=== PATIENT | female | born 1960 | race Asian ===

== ENCOUNTER 2023-11-01 09:08 | Outpatient (REF) | payer MEDICAID, SELFPAY | END 2023-11-01 09:09 | disposition home or self-care (01) | LOC: HO.HHCLNP 09:08 | PROVIDERS: Visit Provider Emergency Medicine | DX: R10.10 Upper abdominal pain, unspecified (principal) | CPT/HCPCS: 87338 ==

== ENCOUNTER 2023-11-01 15:48 | Emergency (ER) | payer MEDICAID, SELFPAY ==
--- NOTE | ~2023-11-01 | XR_ITS ---
EXAMINATION: XR chest 1V CLINICAL INFORMATION: Chest pain COMPARISON: None TECHNIQUE: Single portable frontal view. Tubes and lines: None Lungs and pleura: Both lungs are clear. Heart and mediastinum: The mediastinum is within normal limits.. Bones/soft tissue: Skeletal structures included are normal for patient's age. XR/XR chest 1V IMPRESSION: No radiographic evidence of acute cardiopulmonary disease.
--- NOTE | 2023-11-01 15:49 | ECG_ITS ---
Test Reason : CHEST PAIN Blood Pressure : / mmHG Vent. Rate : 094 BPM Atrial Rate : 094 BPM P-R Int : 154 ms QRS Dur : 078 ms QT Int : 372 ms P-R-T Axes : 063 045 021 degrees QTc Int : 465 ms Normal sinus rhythm ST & T wave abnormality, consider inferior ischemia Abnormal ECG No previous ECGs available Referred By: Lorrie Sanchez Electronically Signed By:CHAMP SMITH MD
--- NOTE | 2023-11-01 15:53 | ED_ITS ---
HPI - General Adult General Chief complaint: Chest Pain Stated complaint: chest pain, sent by Vickers Time Seen by Provider: 11/01/23 18:22 History of Present Illness HPI narrative: 63 y/o F patient; without significant PMH; presents on referral from PCP for several months of chest pain. The patient moved to [facility] from [facility] one year ago. In that time she has not seen a doctor as she did not have insurance. She recently received insurance and today was her first visit to her new PCP. While at the PCP office patient noted several months of left-sided headache, left-sided neck pain, and left-sided chest pain. These symptoms are worse at night and when trying to sleep. She also endorsed right upper quadrant pain. As she endorsed active chest pain she was sent to the emergency department for further evaluation. Patient's son-in-law provides translation. He denies: nausea/vomiting, diarrhea, difficulty breathing, syncope. Related Data Allergies Allergy/AdvReac Type Severity Reaction Status Date / Time No Known Allergies Allergy Verified 11/01/23 16:06 Review of Systems 2 Review of Systems: Yes all other systems are reviewed and are negative Neurologic: Denies Abnormal speech present and Denies Sensory deficit (Neuro) [facility] Past Medical History Attestation statement: The following information was validated with the patient. Source: unable to obtain Social History Social History Smoked in Last 30 Days: No Use of substances other than those prescribed or required for medical reasons: No Do you have a plan to hurt others: No Plan Physical Exam ED Vital Signs: Vital Signs - 24 hr 11/01/23 16:04 11/01/23 18:44 Temperature 97.6 F 98.1 F Pulse Rate 91 64 Respiratory Rate 18 16 Blood Pressure 144/79 H 143/77 H Pulse Oximetry 99 99 Oxygen Delivery Method Room Air Room Air BMI result Body Mass Index 22.8 Patient is afebrile, mildly hypertensive. Const General: cooperative Orientation/consciousness: patient oriented x3 HENMT Head: Yes normal to inspection and Yes atraumatic Eyes General: appearance normal, both eyes and all related structures Pupils: Equal, round and reactive pupils present EOM: EOMs intact bilaterally Neck Neck: Yes normal visual inspection, Yes full ROM and No tender Chest Chest palpation & inspection: normal inspection of the chest and normal palpation of entire chest wall Resp Effort & Inspection: normal respiratory effort, able to speak in complete sentences, no cough and no respiratory distress Auscultation: clear to auscultation bilaterally Cardio Rate: regular rate Rhythm: regular rhythm Peripheral pulses: Peripheral pulses 2+ throughout GI Inspection: Yes normal to inspection, No Abdominal wall edema and No distended Palpation (GI): Soft to palpation, not firm, nontender, no guarding and not rigid Auscultation: normal bowel sounds Neuro General: patient oriented x3 and gait normal Cranial nerves: Yes CN's II-XII intact bilaterally and Yes Equal, round and reactive pupils present Cognition (Neuro): normal cognition Speech: No Abnormal speech present Motor exam (neuro): 5/5 motor strength present throughout Sensory Exam: No Sensory deficit (Neuro) Course Course Course Narrative: This is an RME done by SHANE Sanchez: Additional HPI, ROS, PE not included below will be deferred to primary provider. 63 year old female hx of htn ( hasnt been on meds for a year) presents w/ cp, headache, sob X a long time coming from doctors office who recommended CT scan of head, chest, abd/pelvis unclear why. Patient [facility] and since then has not taken home meds. Reevaluation(s) Reevaluation #1: Patient is afebrile and mildly hypertensive. EKG with NSR 72BPM without ischemic changes. Labs reviewed. No leukocytosis. Normal Hgb. Appropriate kidney function. Appropriate LFTs and alk phos. Appropriate lipase. Negative troponin. CXR unremarkable. Unclear etiology of patient's chronic pain complaints. Patient will need to continue to establish care with PCP for further out-patient diagnostic studies. At this time patient is hemodynamically stable with reassuring vitals and appropriate for further out-patient work up. Discussed with patient and son-in-law at bedside. They expressed understanding. Plan: Discharge to home to follow up with PCP Condition: Stable Medical Decision Making Lab Data 11/01/23 15:55 11/01/23 15:55 Labs: Lab Results 11/01/23 Range/Units 15:55 WBC 6.6 (4.8-10.8) X10*3/uL RBC 4.57 (4.20-5.50) X10*6/uL Hgb 12.5 (12.0-16.0) g/dl Hct 39.2 (37.0-47.0) % MCV 85.8 (80.0-98.0) fL MCH 27.4 (27.0-33.0) pg MCHC 31.9 (31.0-35.0) g/dl RDW 12.3 (11.0-16.0) % Plt Count 289 (160-400) X10*3/uL MPV 8.8 L (9.4-12.3) fL Immature Gran % (Auto) 0.2 (0.0-0.4) % Neut % (Auto) 56.0 (45-73) % Lymph % (Auto) 28.5 (20-40) % Gilchrist % (Auto) 11.6 H (2-11) % Eos % (Auto) 2.9 (0-4) % Baso % (Auto) 0.8 (0-2) % Lymph # (Auto) 1.9 (1.2-4.9) X10*3/uL Gilchrist # (Auto) 0.8 (0.1-1.2) X10*3/uL Eos # (Auto) 0.2 (0.0-0.4) X10*3/uL Baso # (Auto) 0.1 (0.0-0.2) X10*3/uL Abs Immat Gran (auto) 0.01 (0.00-0.03) X10*3/uL Absolute Neuts (auto) 3.7 (2.0-8.3) x10*3/uL Absolute Nucleated RBC 0.000 (0.0-0.012) X10*3/uL Nucleated RBC % (auto) 0.0 (0.0-0.2) /100WBC Sodium 141 (135-145) mmol/L Potassium 3.7 (3.3-5.1) mmol/L Chloride 105 (96-108) mmol/L Carbon Dioxide 25 (22-29) mmol/L Anion Gap 15 (12-20) BUN 10 (9-16) mg/dL Creatinine 0.74 (0.5-1.4) mg/dL Estim Creat Clear Calc 53.0 Estimated GFR > 60 Random Glucose 113 (60-115) mg/dL Calcium 9.7 (8.4-10.2) mg/dL Magnesium 2.3 (1.6-2.6) mg/dL Total Bilirubin 0.2 (0.0-1.0) mg/dL AST 27 (5-31) U/L ALT 28 (0-31) U/L Alkaline Phosphatase 81 (39-117) U/L Troponin I High Sens < 2.7 (<3.5-17.0) ng/L Total Protein 7.7 (6.5-8.0) g/dL Albumin 4.4 (3.5-5.0) g/dL Lipase 37 (8-78) U/L Discharge Plan Discharge Clinical Impression: Chest pain Patient Disposition: Home, Self-Care Instructions: Chest Pain (DC) Additional Instructions: As we discussed, you were seen for chest pain as well as left-sided neck pain and headache. Your CXR was reassuring. Your labs were reassuring with a normal CBC, CMP, lipase, and troponin. Your EKG was reassuring. Recommend you follow up with your PCP on Saturday11/03/2023 for further diagnostic work up and to began a hypertension medication. Return to the emergency department for: Passing out Worsening chest pain Difficulty breathing
[2023-11-01 16:02] LABS: MANUAL DIFF FLAG NO
[2023-11-01 16:04] VITALS: BP 144/79; PULSE 91; RESP 18; TEMP 36.4; O2SAT 99; BMI 22.8
[2023-11-01 16:04] LABS: Basophils Absolute Auto 0.1 X10*3/uL (0.0-0.2); Basophils Percent Auto 0.8 % (0-2); Eosinophils Absolute Auto 0.2 X10*3/uL (0.0-0.4); Eosinophils Percent Auto 2.9 % (0-4); Hematocrit 39.2 % (37.0-47.0); Hemoglobin 12.5 g/dl (12.0-16.0); Imm Gran Abs Auto 0.01 X10*3/uL (0.00-0.03); Imm Gran Pct Auto 0.2 % (0.0-0.4); Lymphocytes Absolute Auto 1.9 X10*3/uL (1.2-4.9); Lymphocytes Percent Auto 28.5 % (20-40); Mean Corpuscular HGB Conc 31.9 g/dl (31.0-35.0); Mean Corpuscular Hemoglobin 27.4 pg (27.0-33.0); Mean Corpuscular Volume 85.8 fL (80.0-98.0); Mean Platelet Volume 8.8 fL (9.4-12.3); Monocytes Absolute Auto 0.8 X10*3/uL (0.1-1.2); Monocytes Percent Auto 11.6 % (2-11); Neutrophils Absolute Auto 3.7 x10*3/uL (2.0-8.3); Platelet Count 289 X10*3/uL (160-400); Red Blood Count 4.57 X10*6/uL (4.20-5.50); Red Cell Distribution Width 12.3 % (11.0-16.0); White Blood Count 6.6 X10*3/uL (4.8-10.8)
[2023-11-01 16:19] LABS: Alanine Aminotransferase 28 U/L (0-31); Albumin Level 4.4 g/dL (3.5-5.0); Alkaline Phosphatase 81 U/L (39-117); Anion Gap 15 (12-20); Aspartate Amino Transferase 27 U/L (5-31); Bilirubin Total 0.2 mg/dL (0.0-1.0); Blood Urea Nitrogen 10 mg/dL (9-16); Calcium 9.7 mg/dL (8.4-10.2); Carbon Dioxide 25 mmol/L (22-29); Chloride 105 mmol/L (96-108); Estimated Glomerular Filt Rate > 60; Glucose Random 113 mg/dL (60-115); Magnesium 2.3 mg/dL (1.6-2.6); Potassium 3.7 mmol/L (3.3-5.1); Sodium 141 mmol/L (135-145); Total Protein 7.7 g/dL (6.5-8.0)
[2023-11-01 16:31] LABS: Troponin-I High Sensitivity < 2.7 ng/L (<3.5-17.0)
--- NOTE | 2023-11-01 18:25 | ECG_ITS ---
Test Reason : CHEST PAIN Blood Pressure : / mmHG Vent. Rate : 072 BPM Atrial Rate : 072 BPM P-R Int : 162 ms QRS Dur : 086 ms QT Int : 438 ms P-R-T Axes : 066 054 051 degrees QTc Int : 479 ms Normal sinus rhythm Normal ECG When compared with ECG of 01-NOV-2023 15:50, T wave inversion no longer evident in Inferior leads Referred By: Micehlle Nelson Electronically Signed By:CHAMP SMITH MD
[2023-11-01 18:44] VITALS: BP 143/77; PULSE 64; RESP 16; TEMP 36.7; O2SAT 99
[2023-11-01 19:00] LABS: Lipase 37 U/L (8-78)
[2023-11-01 19:01] VITALS: PULSE 74
--- NOTE | 2023-11-01 19:07 | PC.NURSE ---
Assumed care of pt. Assessed as charted. Provider at bedside.
[2023-11-01] MEDS: Acetaminophen 325 MG TABLET 975 MG PO (19:57)
[2023-11-01 20:03] VITALS: BP 156/92; PULSE 77; RESP 18; TEMP 36.4; O2SAT 99
== END 2023-11-01 20:04 | disposition home or self-care (01) ==
PROVIDERS: Physician Assistant; Emergency Provider Emergency Medicine
DX: R07.9 Chest pain, unspecified (principal); R51.9 Headache, unspecified; M54.2 Cervicalgia
CPT/HCPCS: 36415; 71045; 80053; 83690; 83735; 84484; 85025; 93005; 99283; 99285

== ENCOUNTER → 2023-11-01 15:49 | Outpatient (BNV) | payer MEDICAID, SELFPAY | PROVIDERS: Emergency Provider Emergency Medicine; Visit Provider Internal Medicine Cardiovascular Disease | DX: R07.9 Chest pain, unspecified (principal) | CPT/HCPCS: 93010 ==

== ENCOUNTER 2023-12-27 15:30 | Outpatient (AMB) | payer MEDICAID, SELFPAY ==
[2023-12-27 15:32] VITALS: BP 157/72; PULSE 67; BMI 22.1
--- NOTE | 2023-12-27 15:32 | A.OFFVIS_ITS ---
Vital Signs 12/27/23 15:32 Height 4 ft 10 in Weight 105 lb 13.15 oz BMI 22.1 BP 157/72 H Blood Pressure Location Lt brachial Position Sitting Pulse 67 Intake Visit Reasons: Upper ABD Pain Intake Note: Louann presents as a new patient for evaluation and management of abdominal pain. CC: Patient in office with her son in law who is interpreting for her. She c/o right upper abdominal pain, epigastric pain, and right flank on and off for about 5 years ago. She reports feeling the pain after eating. Pain scale 8/10, pain better after she takes, gas pill. Patient came from [facility] about a year ago and she just got [facility] and started recently seeing doctors. She also reports upper back pain, high BP, and tachycardia. Filter Tank Tender Required: No Accompanied by: son in law Allergies No Known Allergies Allergy (Verified 11/01/23 16:06) HPI HPI Upper ABD Pain: Details: 63-year-old female with no significant medical history and multiple health complaints in the past 10 years is here today for initial consultation. Patient is here with her son-in-law who is translating for us per patient's request. Patient does not want to have iPad translators as her dialect is different and she will not understand. Patient reports that she got to [facility] about a year ago from [facility]. Has not been seen by doctors regularly in her country. Patient states that medical care is only for patients who are sick. Lately in the past few weeks patient has been complaining of abdominal pain postprandial abdominal bloating, constipation, palpitation and has been seen in urgent care, however due to nature of her complaint she was sent to ER. Patient was complaining back in October of chest pain and was sent by Dr. Vickers to ER where she was evaluated with negative workup. Patient does not have a PCP yet as just recently got her health insurance. Patient never had colonoscopy in the past or upper endoscopy. Patient denies melena, hematochezia, unintentional weight loss or ribbon like stools. Patient reports to have frequent abdominal bloating, occasional postprandial diarrhea, however feeling constipated for the most part. Patient denies any nausea or vomiting. Patient reports that she is unable to sleep. [facility] Surgical History (Updated 12/27/23 @ 15:49 by TYSON Coats) No pertinent past surgical history Social History (Updated 12/27/23 @ 15:49 by TYSON Coats) Alcohol intake: never Patient Tobacco Use Status: Never used Tobacco Review of Systems Const Denies weight gain and Denies weight loss ENT Reports no additional complaints, Denies dysphagia and Denies odynophagia Card Reports rapid heart rate Resp Reports no additional complaints GI Reports abdominal pain (Epigastric), Denies belching, Denies melena, Reports bloating, Denies change in bowel habits, Reports constipation, Denies dysphagia, Denies excessive flatus, Denies dyspepsia, Reports heartburn, Denies diarrhea, Reports loose stools, Denies nausea, Denies odynophagia and Denies vomiting Reports no additional complaints Musc Reports no additional complaints Neuro Reports no additional complaints Psych Reports no additional complaints Endo Reports no additional complaints Physical Exam Vital Signs: Last Vital Signs Pulse 67 12/27/23 15:32 BP 157/72 H 12/27/23 15:32 BMI result Body Mass Index 22.1 Const General: healthy appearing, no acute distress and well developed Nutritional Appearance: well nourished Orientation/consciousness: patient oriented x3 Resp Effort & Inspection: normal respiratory effort, able to speak in complete sentences, no tracheal deviation and symmetric chest movement Auscultation: clear to auscultation bilaterally Cardio Rate: regular rate GI Inspection: Yes normal to inspection and No distended Palpation (GI): Soft to palpation, not firm, nontender and No hepatosplenomegaly present Auscultation: normal bowel sounds General: Yes no CVA tenderness Back/Spine/Pelvis Back: no CVA tenderness Skin General skin exam: elasticity normal, turgor normal and dry skin Neuro General: patient oriented x3 Psych Appearance: grossly normal Mental Status: mental status grossly normal Assessment & Plan Assessment & Plan (1) Postprandial abdominal bloating: Code(s): R14.0 - Abdominal distension (gaseous) (2) Postprandial epigastric pain: Code(s): R10.13 - Epigastric pain (3) Constipation: Code(s): K59.00 - Constipation, unspecified Qualifiers: Constipation type: slow transit constipation Qualified Code(s): K59.01 - Slow transit constipation (4) Palpitations: Code(s): R00.2 - Palpitations Plan Recent lab work from ER reviewed and no acute processes. Patient admits to being constipated will send her script for senna. Reports palpitations will send her to see Cardiology. Patient does not have a PCP she was encouraged to try to find one at [facility] or [facility]. Per patient request I gave her 1 month supply of melatonin to try to help her with sleep. Ultrasound was ordered by Dr. Vickers at urgent care at [facility]. Patient has appointment already and I will see her after reviewing the ultrasound in 4 weeks. Both patient and son-in-law are agreeable to plan of care and verbalizes understanding of instructions. They were given the opportunity to ask questions and all questions answered. Thank you for allowing me to participate in her care. Orders: Referrals Cardiology Referral I10 - Essential (primary) hypertension, R00.2 - Palpitations, R07.9 - Chest pain, unspecified Medications: New sennosides (Natural Senna Laxative) 17.2 mg (2 x 8.6 mg) PO BEDTIME 60 tabs 3RF constipation K59.00 - Constipation, unspecified melatonin 3 mg PO BEDTIME PRN 30 caps 0RF sleep Coding Level of Care Code New Pt Level 4 (49904) Diagnoses Postprandial abdominal bloating R14.0 Postprandial epigastric pain R10.13 Slow transit constipation K59.01 Constipation type: slow transit constipation Palpitations R00.2 Time Spent (min) 45 Comment 30 minutes spent with patient and additional 15 minutes spent reviewing her records
== END 2023-12-27 16:22 | disposition home or self-care (01) ==
PROVIDERS: Visit Provider Nurse Practitioner Family
DX: R14.0 Abdominal distension (gaseous) (principal); R10.13 Epigastric pain; K59.01 Slow transit constipation; R00.2 Palpitations
CPT/HCPCS: 99204

== ENCOUNTER → 2023-12-27 15:30 | Outpatient (BNVA) | payer MEDICAID, SELFPAY | PROVIDERS: Visit Provider Nurse Practitioner Family | DX: K59.01 Slow transit constipation (principal); R14.0 Abdominal distension (gaseous); R10.13 Epigastric pain; R00.2 Palpitations | CPT/HCPCS: 99212 ==

== ENCOUNTER 2024-01-03 07:27 | Outpatient (REF) | payer MEDICAID, SELFPAY ==
--- NOTE | ~2024-01-03 | US_ITS ---
EXAMINATION: US ABDOMEN COMPLETE CLINICAL INFORMATION: Epigastric and right upper quadrant pain. COMPARISON: None available. TECHNIQUE: Real-time imaging of the abdominal viscera. FINDINGS: PANCREAS: Normal. ABDOMINAL AORTA: The proximal, mid, and distal segments are normal in caliber. INFERIOR VENA CAVA: Visualized portions are normal. LIVER: Normal. The liver is normal in size. The liver contour is normal. Parenchymal echogenicity is normal. No focal hepatic lesion. There is no intrahepatic biliary duct dilatation seen. GALLBLADDER: Normal. The gallbladder is physiologically distended without evidence of stones, sludge, polyps, wall thickening or pericholecystic fluid. COMMON BILE DUCT: Normal in caliber measuring 0.3 cm in diameter. RIGHT KIDNEY: Normal. No hydronephrosis. No renal calculi or focal parenchymal lesions. The kidney measures 10.7 cm in maximum dimension. LEFT KIDNEY: Normal. No hydronephrosis. No renal calculi or focal parenchymal lesions. The kidney measures 11.5 cm in maximum dimension. SPLEEN: Normal. The spleen measures 7.0 cm in maximum dimension. FREE FLUID: None. US/US abdomen complete IMPRESSION: Unremarkable abdominal ultrasound.
== END 2024-01-03 07:28 | disposition home or self-care (01) ==
LOC: HO.US 07:27
PROVIDERS: Visit Provider Emergency Medicine
DX: R10.10 Upper abdominal pain, unspecified (principal)
CPT/HCPCS: 76700

== ENCOUNTER 2024-01-24 13:33 | Outpatient (AMB) | payer MEDICAID, SELFPAY ==
--- NOTE | 2024-01-24 13:39 | A.OFFVIS_ITS ---
Vital Signs 01/24/24 13:56 Height 4 ft 10 in Weight 105 lb 13.15 oz BMI 22.1 BP 132/62 Blood Pressure Location Lt brachial Position Sitting Pulse 68 Pulse Source Pulse Oximeter Pulse Oximetry (%) 98 Oxygen Delivery Method Room Air Intake Visit Reasons: 4 week PER LUIS ANTONIO Intake Note: Louann presents in office today for a scheduled 4 week FUV. CC; Pt reports that their sx have improved since their last visit. Pt is however; still reporting heart palpitations. Pt also reports having L shoulder pain. Pt states that these are chronic sx over the last few years. Pt has been having difficulties with sleeping as well due to the pain. Pt has been taking acetaminophen for the pain which helps. However, they are concerned that the appt for the cardio consult isn't until April of this year. Pt states that she is not taking the senna as she had been having an adverse reaction with regard to her cardiovascular sx. Pt is taking a medication from [facility] which she cannot remember the name of. However, she finds that this medication is working rather well. Pt spouse is concerned regarding the pt's nutrition or lack thereof. Informatics Application Analyst Required: Yes Informatics Application Analyst Services: Informatics Application Analyst Offered & Declined Information Interpreted: non-clinical & clinical Accompanied by: Spouse Allergies No Known Allergies Allergy (Verified 02/07/24 13:39) HPI HPI 4 week PER LUIS ANTONIO: Details: LAST VISIT: Postprandial abdominal bloating Postprandial epigastric pain Constipation Palpitations Plan Recent lab work from ER reviewed and no acute processes. Patient admits to being constipated will send her script for senna. Reports palpitations will send her to see Cardiology. Patient does not have a PCP she was encouraged to try to find one at [facility] or [facility]. Per patient request I gave her 1 month supply of melatonin to try to help her with sleep. Ultrasound was ordered by Dr. Vickers at urgent care at [facility]. Patient has appointment already and I will see her after reviewing the ultrasound in 4 weeks. Both patient and son-in-law are agreeable to plan of care and verbalizes understanding of instructions. They were given the opportunity to ask questions and all questions answered. ? Thank you for allowing me to participate in her care. Orders Referrals Cardiology Referral I10, R00.2, R07.9 Medications New sennosides (Natural Senna Laxative) 17.2 mg (2 x 8.6 mg) PO BEDTIME 60 tabs 3RF constipation K59.00 melatonin 3 mg PO BEDTIME PRN 30 caps 0RF sleep TODAY'S VISIT Patient is here today for follow-up. Patient reports that she has an appointment with Cardiology for consult in April. Patient states that her symptoms of acid reflux have suppressed. No longer is using senna. Patient tried something from [place] that is helping her move her bowels better. Patient denies any abdominal pain or discomfort. Denies melena, hematochezia, unintentional weight loss or ribbon like stools. Patient denies any dyspepsia, dysphagia or odynophagia. Patient reports that she has good appetite denies GI concerning symptoms. Reports shoulder no. Shoulder pain and joint pain in the past couple years. Takes [id number] Tylenol as needed. Encouraged to get this evaluated by the walk-in clinic as patient does not have a PCP [facility] Surgical History No pertinent past surgical history Social History Alcohol intake: never Patient Tobacco Use Status: Never used Tobacco Review of Systems Const Denies weight gain and Denies weight loss ENT Reports no additional complaints, Denies dysphagia and Denies odynophagia Card Reports rapid heart rate Resp Reports no additional complaints GI Reports abdominal pain (Epigastric), Denies belching, Denies melena, Reports bloating, Denies change in bowel habits, Reports constipation, Denies dysphagia, Denies excessive flatus, Denies dyspepsia, Reports heartburn, Denies diarrhea, Reports loose stools, Denies nausea, Denies odynophagia and Denies vomiting Reports no additional complaints Musc Reports no additional complaints Neuro Reports no additional complaints Psych Reports no additional complaints Endo Reports no additional complaints Physical Exam Vital Signs: Last Vital Signs Pulse 68 01/24/24 13:56 BP 132/62 01/24/24 13:56 Pulse Ox 98 01/24/24 13:56 Oxygen Delivery Method Room Air 01/24/24 13:56 BMI result Body Mass Index 22.1 Const General: healthy appearing, no acute distress and well developed Nutritional Appearance: well nourished Orientation/consciousness: patient oriented x3 Resp Effort & Inspection: normal respiratory effort, able to speak in complete sentences, no tracheal deviation and symmetric chest movement Auscultation: clear to auscultation bilaterally Cardio Rate: regular rate GI Inspection: Yes normal to inspection and No distended Palpation (GI): Soft to palpation, not firm, nontender and No hepatosplenomegaly present Auscultation: normal bowel sounds General: Yes no CVA tenderness Back/Spine/Pelvis Back: no CVA tenderness Skin General skin exam: elasticity normal, turgor normal and dry skin Neuro General: patient oriented x3 Psych Appearance: grossly normal Mental Status: mental status grossly normal Results Reviewed Results Reviewed: ABDOMINAL ULTRASOUND FINDINGS: PANCREAS: Normal. ABDOMINAL AORTA: The proximal, mid, and distal segments are normal in caliber. INFERIOR VENA CAVA: Visualized portions are normal. LIVER: Normal. The liver is normal in size. The liver contour is normal. Parenchymal echogenicity is normal. No focal hepatic lesion. There is no intrahepatic biliary duct dilatation seen. GALLBLADDER: Normal. The gallbladder is physiologically distended without evidence of stones, sludge, polyps, wall thickening or pericholecystic fluid. COMMON BILE DUCT: Normal in caliber measuring 0.3 cm in diameter. RIGHT KIDNEY: Normal. No hydronephrosis. No renal calculi or focal parenchymal lesions. The kidney measures 10.7 cm in maximum dimension. LEFT KIDNEY: Normal. No hydronephrosis. No renal calculi or focal parenchymal lesions. The kidney measures 11.5 cm in maximum dimension. SPLEEN: Normal. The spleen measures 7.0 cm in maximum dimension. FREE FLUID: None. US/US abdomen complete IMPRESSION: Unremarkable abdominal ultrasound. Assessment & Plan Assessment & Plan (1) Postprandial abdominal bloating: Code(s): R14.0 - Abdominal distension (gaseous) (2) Postprandial epigastric pain: Code(s): R10.13 - Epigastric pain (3) Constipation: Code(s): K59.00 - Constipation, unspecified Qualifiers: Constipation type: slow transit constipation Qualified Code(s): K59.01 - Slow transit constipation (4) Palpitations: Code(s): R00.2 - Palpitations Plan Avoid dietary triggers and late night snacking. Increase fluid intake and activity to promote better bowel motility. Increase fiber intake. Patient will return in 2 months will discuss going for colonoscopy and if continues with epigastric pain upper endoscopy. She is agreeable to this plan and verbalizes understanding of instructions. She was given the opportunity to ask questions and all questions answered. Thank you for allowing me to participate in her care Orders: Referrals Dermatology Referral D23.30 - Other benign neoplasm of skin of unspecified part of face Coding Level of Care Code Est Pt Level 3 (26422) Diagnoses Postprandial abdominal bloating R14.0 Postprandial epigastric pain R10.13 Slow transit constipation K59.01 Constipation type: slow transit constipation Palpitations R00.2 Time Spent (min) 25 Comment 15 minutes spent with patient and additional 10 minutes spent reviewing her records
[2024-01-24 13:56] VITALS: BP 132/62; PULSE 68; O2SAT 98; BMI 22.1
== END 2024-01-24 14:39 | disposition home or self-care (01) ==
PROVIDERS: Visit Provider Nurse Practitioner Family
DX: R14.0 Abdominal distension (gaseous) (principal); R10.13 Epigastric pain; K59.01 Slow transit constipation; R00.2 Palpitations
CPT/HCPCS: 99213

== ENCOUNTER → 2024-01-24 13:33 | Outpatient (BNVA) | payer MEDICAID, SELFPAY | PROVIDERS: Visit Provider Nurse Practitioner Family | DX: K21.9 Gastro-esophageal reflux disease without esophagitis (principal) | CPT/HCPCS: 99212 ==

== ENCOUNTER 2024-02-07 13:32 | Outpatient (AMB) | payer MEDICAID, SELFPAY ==
--- NOTE | 2024-02-07 13:36 | MHC.OFFWIV ---
Intake Vital Signs 02/07/24 13:37 Weight 107 lb BP 118/70 Blood Pressure Location Lt brachial Position Sitting Pulse 63 Pulse Source Pulse Oximeter Pulse Oximetry (%) 98 Oxygen Delivery Method Room Air Intake Visit Reasons: EP- LT cheek skin rash Intake Note: Patient here for rash on left side of face and states her head hurts and radiates down the to left shoulders and having difficulty sleeping due to pain. Patient Tobacco Use Status: Never used Tobacco Allergies No Known Allergies Allergy (Verified 02/07/24 13:39) Do you need a note to return to daycare/school/sports/work: No HPI HPI Comments History of Present Illness Details Patient is a 64-year-old female here with her son who is interpreting for her. He states that she went to see her patron attendant and was given a referral for Dermatology because of a lesion on the side of her face. He states that they are unable to be seen by that dermatology office for 3 months and this lesion has been here for a while and they really want to see someone is soon as possible. Her 2nd issue is that she has pain that radiates down the left side of her neck into her shoulders and her scapula. She feels like the pain sometimes spasms on its own. She said it is difficult for her to sleep at night because of the pain. She has tried Tylenol at a proper dose, she has tried ibuprofen at a proper dose. She denies any trauma to the area. He tells me that she came from [facility] 1 year ago and does not have a primary care doctor. [facility] Surgical History No pertinent past surgical history Social History Alcohol intake: never Patient Tobacco Use Status: Never used Tobacco Review of Systems Const All systems reviewed & are unremarkable except as noted in HPI and below Physical Exam Vital Signs: Last Vital Signs Pulse 63 02/07/24 13:37 BP 118/70 02/07/24 13:37 Pulse Ox 98 02/07/24 13:37 Oxygen Delivery Method Room Air 02/07/24 13:37 Const General: cooperative, healthy appearing, comfortable, no acute distress and well developed Orientation/consciousness: patient oriented x3 Limitations: no limitations HEENT Head: Yes normal to inspection Ears: hearing grossly normal bilaterally General nose exam: Normal external nose present Face and sinus: Yes normal facial exam Eyes General: appearance normal, both eyes and all related structures Neck Neck: Yes normal visual inspection and Yes full ROM Resp Effort & Inspection: normal respiratory effort and able to speak in complete sentences Back/Spine/Pelvis Cervical Spine: cervical ROM normal, cervical muscular tenderness (left side) and No Cervical spine tenderness Thoracic/Lumbar Spine: paraspinal muscle tenderness on the left, thoraco-lumbar spasm (upper thoracic area) on the left and No thoracic spinal tenderness Skin General skin exam: no rashes or lesions noted Neuro General: patient oriented x3 Extrem General: Yes normal to inspection Assessment & Plan Assessment & Plan (1) Strain of neck muscle: Code(s): S16.1XXA - Strain of muscle, fascia and tendon at neck level, initial encounter Qualifiers: Encounter type: initial encounter Qualified Code(s): S16.1XXA - Strain of muscle, fascia and tendon at neck level, initial encounter Plan: Recommended meloxicam nightly as needed (2) Muscle spasm of left shoulder: Code(s): M62.838 - Other muscle spasm Plan: Recommended cyclobenzaprine nightly as needed. Reviewed this medication with the patient and recommended that they not get up in the middle of the night and walk around because they will be very groggy and I do not want them to fall. Reviewed this with her son. Plan Also gave the patient information for [facility] so she can get an appointment for the lesion on her face sooner than later. I did not do a thorough examination on the lesion, I am not sending a referral. I just gave them the name and number of [facility] Medications: New cyclobenzaprine 5 mg PO Q8H PRN 7 tabs 0RF muscle spasm meloxicam 15 mg PO .QHS PRN 10 tabs 0RF muscle pain Coding Level of Care Code New Pt Level 3 (09667) Diagnoses Strain of neck muscle, initial encounter S16.1XXA Encounter type: initial encounter Muscle spasm of left shoulder M62.838
[2024-02-07 13:37] VITALS: BP 118/70; PULSE 63; O2SAT 98
== END 2024-02-07 14:01 | disposition home or self-care (01) ==
PROVIDERS: Visit Provider Physician Assistant
DX: S16.1XXA Strain of muscle, fascia and tendon at neck level, initial encounter (principal); M62.838 Other muscle spasm
CPT/HCPCS: 99203

== ENCOUNTER 2024-02-21 08:11 | Outpatient (AMB) | payer MEDICAID, SELFPAY ==
--- NOTE | 2024-02-21 08:19 | MHC.OFFWIV ---
Intake Vital Signs 02/21/24 08:20 Height 4 ft 10 in Weight 105 lb BMI 21.9 BP 114/72 Blood Pressure Location Lt brachial Position Sitting Pulse 69 Pulse Source Pulse Oximeter Pulse Oximetry (%) 96 Oxygen Delivery Method Room Air Intake Visit Reasons: EP Back pain, UTI? Intake Note: Patient here for back pain which she was put on medication for but it was only for 5 days and now she is having pain again. She also has been having frequent urination. Patient Tobacco Use Status: Never used Tobacco Allergies No Known Allergies Allergy (Verified 02/07/24 13:39) HPI EP Back pain, UTI? HPI Details 64 year old female patient presents to the walk-in clinic today with report of ongoing left upper back muscular pain, in addition to bilateral lumbar pain. The left upper neck/back pain is most troublesome for her, she reports that pain radiates down the left side of her neck into her shoulders and her scapular region. She occasionally has spasms in this area, and this is making sleep difficult. She had previously tried Tylenol and ibuprofen with minimal benefit. She was seen here on 02/06, and started on short course of meloxicam and cyclobenzaprine. This was reportedly very helpful for her, but once she stopped the medication, her pain and spasms recurred. She denies any inciting events/trauma prior to this pain. She has recently emigrated from [facility] and does not have a primary care provider at this time, although she does have a new patient appointment scheduled, it is not until the spring. She reports additionally some urinary frequency. Denies any fever, chills, dysuria, urgency, odor, or discoloration to urine. [facility] Surgical History No pertinent past surgical history Social History Alcohol intake: never Patient Tobacco Use Status: Never used Tobacco Review of Systems Const All systems reviewed & are unremarkable except as noted in HPI and below Physical Exam Vital Signs: Last Vital Signs Pulse 69 02/21/24 08:20 BP 114/72 02/21/24 08:20 Pulse Ox 96 02/21/24 08:20 Oxygen Delivery Method Room Air 02/21/24 08:20 BMI result Body Mass Index 21.9 Const General: cooperative, healthy appearing, comfortable and no acute distress Neck Neck: Yes no lymphadenopathy Resp Effort & Inspection: normal respiratory effort Auscultation: clear to auscultation bilaterally Cardio Rate: regular rate Rhythm: regular rhythm General: Yes bladder normal to palpation and Yes no CVA tenderness Bimanual exam- vagina & uterus: bladder normal to palpation Back/Spine/Pelvis Other: Cervical/thoracic/lumbar range of motion within normal limits. No vertebral tenderness. Straight leg test negative bilaterally. Tenderness along left trapezius and rhomboid, additionally in lower lumbar paraspinal musculature. No SI joint pain on exam. Back: no CVA tenderness Skin General skin exam: no rashes or lesions noted Extrem General: Yes capillary refill normal and Yes no clubbing, cyanosis or edema Psych Appearance: grossly normal Mental Status: mental status grossly normal Speech and movement: Normal speech and movement present Results AMB Urinalysis, Automated UA Leukoctes 0 [place]/uL Last Edit by Bharat Mckeon CCM on 02/21/24 08:33 UA Nitrite Negative Last Edit by Bharat Mckeon [facility] on 02/21/24 08:33 UA Urobilinogen 0.2 mg/dL Last Edit by Bharat Mckeon [facility] on 02/21/24 08:33 UA Protein 0 mg/dL Last Edit by Bharat Mckeon [facility] on 02/21/24 08:33 UA pH 6.0 Last Edit by Bharat Mckeon [facility] on 02/21/24 08:33 UA Blood 0 [place]manuel/uL Last Edit by Bharat Mckeon [facility] on 02/21/24 08:33 UA Specific [place] 1.020 Last Edit by Bharat Mckeon [facility] on 02/21/24 08:33 UA Ketone Negative Last Edit by Bharat Mckeon [facility] on 02/21/24 08:33 UA Bilirubin 0 mg/dL Last Edit by Bharat Mckeon [facility] on 02/21/24 08:33 UA Glucose 0 mg/dL Last Edit by Bharat Mckeon [facility] on 02/21/24 08:33 Results Reviewed Results Reviewed: Laboratory Last Values Urine pH (Auto) 6.0 02/21/24 08:32 Specific [place] (Auto) 1.020 02/21/24 08:32 Urine Protein (Auto) 0 mg/dL 02/21/24 08:32 Glucose (UA)(Auto) 0 mg/dL 02/21/24 08:32 Urine Ketones (Auto) Negative 02/21/24 08:32 Urine Blood (Auto) 0 [place]/uL 02/21/24 08:32 Urine Nitrite (Auto) Negative 02/21/24 08:32 Urine Bilirubin (Auto) 0 mg/dL 02/21/24 08:32 Urine Urobilinogen (Auto) 0.2 mg/dL 02/21/24 08:32 Leukocyte Esterase (Auto) 0 [place]/uL 02/21/24 08:32 Assessment & Plan Assessment & Plan (1) Strain of cervical portion of left trapezius muscle: Code(s): S16.1XXA - Strain of muscle, fascia and tendon at neck level, initial encounter Plan: Patient had previously done well on short course of NSAIDs and muscle relaxers. I will refill this, and encouraged evaluation with Physical therapy. Patient does not have PCP at this time, so I will order this. We discussed gentle stretching, heat application, Tylenol as needed. We reviewed indications, use, possible side effects of medications prescribed. Patient and son-in-law present at visit verbalized understanding and agreed to plan. (2) Lumbar muscle pain: Code(s): M79.18 - Myalgia, other site Plan Urine dip was within normal limits. No other UTI symptoms aside from some reported frequency. Advised to monitor this, and return to clinic if symptoms worsen, or if new symptoms such as urinary urgency, odor, discoloration, fever/chills or dysuria occur Orders: Orders AMB Urinalysis Automated Today Z13.9 - Encounter for screening, unspecified PT Evaluation and Treatment Today M79.18 - Myalgia, other site, S16.1XXA - Strain of muscle, fascia and tendon at neck level, initial encounter Medications: Changed From cyclobenzaprine 5 mg PO Q8H PRN 7 tabs 0RF muscle spasm M79.18 - Myalgia, other site, S16.1XXA - Strain of muscle, fascia and tendon at neck level, initial encounter To cyclobenzaprine Take one tablet by mouth at bedtime as needed for muscle pain/spasms. 5 mg PO BEDTIME 10 days PRN 10 tabs 0RF muscle spasm M79.18 - Myalgia, other site, S16.1XXA - Strain of muscle, fascia and tendon at neck level, initial encounter From meloxicam 15 mg PO .QHS PRN 10 tabs 0RF muscle pain M79.18 - Myalgia, other site, S16.1XXA - Strain of muscle, fascia and tendon at neck level, initial encounter To meloxicam Take one tablet by mouth daily as needed for pain. 15 mg PO DAILY 10 days PRN 10 tabs 0RF muscle pain M79.18 - Myalgia, other site, S16.1XXA - Strain of muscle, fascia and tendon at neck level, initial encounter Coding Level of Care Code Est Pt Level 4 (69357) Diagnoses Strain of cervical portion of left trapezius muscle S16.1XXA Lumbar muscle pain M79.18
[2024-02-21 08:20] VITALS: BP 114/72; PULSE 69; O2SAT 96; BMI 21.9
== END 2024-02-21 08:47 | disposition home or self-care (01) ==
PROVIDERS: Visit Provider Nurse Practitioner Family
DX: S16.1XXA Strain of muscle, fascia and tendon at neck level, initial encounter (principal); M79.18 Myalgia, other site; Z13.9 Encounter for screening, unspecified
CPT/HCPCS: 81003; 99214

== ENCOUNTER 2024-08-28 10:08 | Outpatient (REF) | payer MEDICAID, SELFPAY ==
[2024-08-28 12:27] LABS: Alanine Aminotransferase 46 U/L (0-31); Albumin Level 4.4 g/dL (3.5-5.0); Alkaline Phosphatase 82 U/L (39-117); Aspartate Amino Transferase 34 U/L (5-31); Bilirubin Direct 0.1 mg/dL (0.0-0.5); Bilirubin Total 0.3 mg/dL (0.0-1.0); Lipase 27 U/L (8-78)
--- OUTSIDE RECORDS SUMMARY | 2024-08-28 12:40 | XMS_ITS | Clinical Summary ---
Author Organization [employer] Address [address] [place] [address] Care Team Providers Care Retirement Specialist Name Role Phone Unavailable Primary Care Provider Unavailabl e Allergies No known active allergies Medications No known medications Active Problems No known active problems Social History Tobacco Use Types Packs/Day Years Used Date Smoking Tobacco: Never Smokeless Tobacco: Never Tobacco Cessation:Counseling Given: Not Answered Alcohol Use Standard Drinks/Week Comments Never 0 (1 standard drink = 0.6 oz pur e alcohol) Comments Unknown Sex and Gender Information Value Date Recorded Sex Assigned at Female 11/01/2023 9:02 AM EDT Legal Sex Female 8:54 AM EDT Gender Identity Female 11/01/2023 9:02 AM EDT Sexual Orientation Straight 11/01/2023 9: 02 AM EDT Last Filed Vital Signs Vital Sign Reading Time Taken Comments Blood Pressure 148/83 11/01/2023 9:15 AM EDT Pulse 84 11/01/2023 9:15 AM EDT Temperature 36.8 ??C (98.2 ??F) 11/01/2023 9:15 AM ED T Respiratory Rate 16 11/01/2023 9:15 AM EDT Oxygen Saturation 98% 11/01/2023 9:15 AM EDT room air Inhaled Oxygen Concentration - - Weight 48.5 kg (107 lb) 11/01/2023 9:15 AM EDT Height 147.3 cm (4' 10 ) 11/01/2023 9:15 AM EDT Body Mass Index 22.36 11/01/2023 9:15 AM EDT Plan of Treatment Health Maintenance Due Date Last Done Comments CT Colonography 1958 Colonoscopy 1958 Colorectal Cancer Screening 1958 Depression Screening 1958 FIT DNA/Cologuard 1958 FIT 1958 FOBT 1958 SDOH Screening 1958 Sigmoidoscopy 1958 Alcohol/Substance Use Screening 1970 Hepatitis C Screening 01/20/1976 DTaP/Tdap/Td Vaccines (1 - Tdap) 1977 Mammogram 1998 Pneumococcal Vaccine: 50+ Ye ars (1 of 1 - PCV) 01/20/2008 Zoster Vaccines (1 of 2) 01/20/2008 COVID-19 Vaccine (1 - 2023-2 5 season) 2024 Influenza Vaccine (#1) 2024 Tobacco Screening 10/31/2024 11/01/2023 RSV Patients and Pa tients Aged 60 years or older (1 - 1-dose 75+ series) 2033 HIB Vaccines Aged Out No longer eligi ble based on patient's age to complete this topic HPV Vaccines Aged Out No longer eligi ble based on patient's age to complete this topic Hepatitis A Vaccines Aged Out No long er eligible based on patient's age to complete this topic Hepatitis B Vaccines Aged Out No long er eligible based on patient's age to complete this topic IPV Vaccines Aged Out No longer eligi ble based on patient's age to complete this topic Meningococcal Vaccine Aged Out No marcel nataliia eligible based on patient's age to complete this topic RSV under 20 months Aged Out No longe r eligible based on patient's age to complete this topic Rotavirus Vaccines Aged Out No longer eligible based on patient's age to complete this topic Insurance [facility] [employer]
== END 2024-08-28 10:09 | disposition home or self-care (01) ==
LOC: HO.LAB 10:08
PROVIDERS: Visit Provider Nurse Practitioner Family
DX: R10.9 Unspecified abdominal pain (principal); R74.01 Elevation of levels of liver transaminase levels; R14.0 Abdominal distension (gaseous); R10.13 Epigastric pain; K59.01 Slow transit constipation; R10.11 Right upper quadrant pain
CPT/HCPCS: 36415; 80076; 83690; 99212

== ENCOUNTER 2024-08-28 10:08 | Outpatient (AMB) | payer MEDICAID, SELFPAY ==
--- NOTE | 2024-08-28 10:18 | MHC.OFFVIS ---
Vital Signs 08/28/24 10:31 Height 4 ft 10 in Weight 109 lb 5.588 oz BMI 22.9 BP 140/76 H Blood Pressure Location Lt brachial Position Sitting Pulse 74 Pulse Source Pulse Oximeter Pulse Oximetry (%) 96 Oxygen Delivery Method Room Air Intake Visit Reasons: 2 month follow up Intake Note: ESTABLISHED PATIENT for mgmt of constipation. Changes/concerns? C/O RUQ pain. No additional concerns at this time. Pt does not have PCP currently. Pt was going to be seen at [facility] but plans fell through. Newspaper Carriers Supervisor Required: Yes Newspaper Carriers Supervisor Services: Newspaper Carriers Supervisor Offered & Declined Newspaper Carriers Supervisor Name: Family Information Interpreted: non-clinical & clinical Accompanied by: Family/Other Allergies No Known Allergies Allergy (Verified 08/28/24 10:31) HPI HPI 2 month follow up: Details: LAST VISIT Postprandial abdominal bloating Postprandial epigastric pain Constipation Palpitations Plan Avoid dietary triggers and late night snacking. Increase fluid intake and activity to promote better bowel motility. Increase fiber intake. Patient will return in 2 months will discuss going for colonoscopy and if continues with epigastric pain upper endoscopy. She is agreeable to this plan and verbalizes understanding of instructions. She was given the opportunity to ask questions and all questions answered. ? Thank you for allowing me to participate in her care Orders Referrals Dermatology Referral D23.30 TODAY'S VISIT Patient is here today for follow-up. Patient just returned from [facility] where she had removal of her facial scab. Patient reports pain and inflammation to that area. Patient is accompanied by her son-in-law who is translating for us per patient's request. Patient is complaining of right upper quadrant pain that has been going on for very long time. Patient is there no matter if she eats or not. Is right underneath her ribs. Patient denies any injury to that area. Previously was sent for abdominal ultrasound when seen at [facility] in urgent care. Report was negative for any acute processes. Patient denies melena, hematochezia, unintentional weight loss or ribbon like stools. Denies any dyspepsia, dysphagia or odynophagia. Patient stopped taking Senokot. Bowel movements every 2-3 days. Reports occasional abdominal bloating [facility] Surgical History History of facial surgery (~05/2024) No pertinent past surgical history Social History Alcohol intake: never Patient Tobacco Use Status: Never used Tobacco Review of Systems Const Denies weight gain and Denies weight loss ENT Reports no additional complaints, Denies dysphagia and Denies odynophagia Card Reports no additional complaints Resp Reports no additional complaints GI Reports abdominal pain (RUQ), Denies belching, Denies melena, Denies bloating, Denies change in bowel habits, Denies dysphagia, Denies excessive flatus, Denies dyspepsia, Denies heartburn, Denies diarrhea, Denies loose stools, Denies nausea, Denies odynophagia and Denies vomiting Musc Reports no additional complaints Neuro Reports no additional complaints Psych Reports no additional complaints Endo Reports no additional complaints Physical Exam Vital Signs: Last Vital Signs Pulse 74 08/28/24 10:31 BP 140/76 H 08/28/24 10:31 Pulse Ox 96 08/28/24 10:31 Oxygen Delivery Method Room Air 08/28/24 10:31 BMI result Body Mass Index 22.9 Const General: healthy appearing, no acute distress and well developed Nutritional Appearance: well nourished Orientation/consciousness: patient oriented x3 Resp Effort & Inspection: normal respiratory effort, able to speak in complete sentences, no tracheal deviation and symmetric chest movement Auscultation: clear to auscultation bilaterally Cardio Rate: regular rate GI Inspection: Yes normal to inspection and No distended Palpation (GI): Soft to palpation, not firm, nontender and No hepatosplenomegaly present Auscultation: normal bowel sounds General: Yes no CVA tenderness Back/Spine/Pelvis Back: no CVA tenderness Skin General skin exam: elasticity normal, turgor normal and dry skin Neuro General: patient oriented x3 Psych Appearance: grossly normal Mental Status: mental status grossly normal Assessment & Plan Assessment & Plan (1) Postprandial abdominal bloating: Code(s): R14.0 - Abdominal distension (gaseous) (2) Postprandial epigastric pain: Code(s): R10.13 - Epigastric pain (3) Constipation: Code(s): K59.00 - Constipation, unspecified Qualifiers: Constipation type: slow transit constipation Qualified Code(s): K59.01 - Slow transit constipation (4) RUQ abdominal pain: Code(s): R10.11 - Right upper quadrant pain Plan Patient will start taking senna 1-2 tablets daily or every other day if no bowel movements in 1-2 days. Increase fluid intake and activity to promote better bowel motility. Patient does not have a PCP. Patient will try to call to make an appointment. Will check lipase and liver panel due to her right upper quadrant pain. Negative Martin sign unlikely cholelithiasis, cholecystitis. Possible gas trapping pain due to incomplete emptying or costochondritis of lower rib area. Patient does not remember injury, however seen in the urgent care twice in the past for neck and shoulder pain and treated with muscle relaxant and NSAIDs. Patient will return in 3 months to discuss going for colonoscopy. Both patient and her son-in-law are agreeable to plan of care and verbalizes understanding of instructions. They were given the opportunity to ask questions and all questions answered. Thank you for allowing me to participate in her care Orders: Orders Lipase Today R10.9 - Unspecified abdominal pain Liver Panel Today R74.01 - Elevation of levels of liver transaminase levels NM hepatobiliary w pharm Today R10.11 - Right upper quadrant pain Medications: New sennosides (Natural Senna Laxative) 17.2 mg (2 x 8.6 mg) PO BEDTIME 60 tabs 3RF constipation K59.00 - Constipation, unspecified Coding Level of Care Code Est Pt Level 3 (66999) Diagnoses Postprandial abdominal bloating R14.0 Postprandial epigastric pain R10.13 Slow transit constipation K59.01 Constipation type: slow transit constipation RUQ abdominal pain R10.11 Time Spent (min) 30 Comment 20 minutes spent with patient and additional 10 minutes spent reviewing her records
[2024-08-28 10:31] VITALS: BP 140/76; PULSE 74; O2SAT 96; BMI 22.9
== END 2024-08-28 10:47 | disposition home or self-care (01) ==
LOC: HO.HGI 10:08
PROVIDERS: Visit Provider Nurse Practitioner Family
DX: R14.0 Abdominal distension (gaseous) (principal); R10.13 Epigastric pain; K59.01 Slow transit constipation; R10.11 Right upper quadrant pain
CPT/HCPCS: 99213

== ENCOUNTER → 2024-09-02 09:59 | Outpatient (REF) | payer MEDICAID, SELFPAY ==
--- NOTE | ~2024-09-02 | NM_ITS ---
EXAMINATION: NM HEPATOBILIARY WITH PHARM HISTORY: R10.11 - Right upper quadrant pain. TECHNIQUE: An hepatobiliary scan was performed following the intravenous administration of 5 mCi technetium 90 9M-mebrofenin. Sequential images were obtained to 1 hour. Subsequently, the patient received 1.0 mcg IV CCK over 30 minutes and additional imaging was obtained for 30 minutes. COMPARISON: Correlation is made with an abdominal ultrasound dated 01/03/2024. FINDINGS: There is normal uptake and excretion of the radiopharmaceutical by the liver. Common bile duct activity is noted at 12 minutes. Small bowel activity is seen at 16 minutes. Gallbladder activity is noted at 32 minutes. After the administration of intravenous CCK, the estimated gallbladder ejection fraction is 73%, which is within normal limits. NM/NM hepatobiliary w pharm IMPRESSION: Normal hepatobiliary scan with normal gallbladder ejection fraction. Electronically signed by: Cesar Viveros MD 09/02/2024 12:34 PM EDT
--- OUTSIDE RECORDS SUMMARY | 2024-09-02 11:26 | XMS_ITS | Clinical Summary ---
Author Organization [employer] Address [address] [facility] [address] [place] [address] Care Team Providers Care Coating Engineer Name Role Phone Unavailable Primary Care Provider [...] patient's age to complete this topic Insurance [facility] [employer]
== END ==
LOC: HO.NUCMED 09:59
PROVIDERS: Visit Provider Nurse Practitioner Family
DX: R10.11 Right upper quadrant pain (principal)
CPT/HCPCS: 78227; A9537; J2805

== ENCOUNTER → 2024-09-02 10:02 | Outpatient (BNV) | payer MEDICAID, SELFPAY | PROVIDERS: Visit Provider Radiology Diagnostic Radiology | DX: R10.11 Right upper quadrant pain (principal) | CPT/HCPCS: 78227 ==

== ENCOUNTER 2024-09-17 15:29 | Outpatient (AMB) | payer MEDICAID, SELFPAY ==
[2024-09-17 15:47] VITALS: BP 130/74; PULSE 68; RESP 16; TEMP 36.3; O2SAT 96; BMI 23.2
--- NOTE | 2024-09-17 15:47 | MHC.PC.OV ---
Vital Signs 09/17/24 15:47 Height 4 ft 10 in Weight 110 lb 12.8 oz BMI 23.2 BP 130/74 Blood Pressure Location Lt brachial Position Sitting Respiration 16 Pulse 68 Pulse Source Pulse Oximeter Temp 97.4 F Temp Source Oral Pulse Oximetry (%) 96 Oxygen Delivery Method Room Air Intake Visit Reasons: GI issues/ establish care Intake Note: Patient is a new patient here to establish care. Patient reports that she had no previous primary care physician Medical records have not been requested and have not been received. Tower Equipment Repairer Required: No Tower Equipment Repairer Name: Son-In-Law Interpreting Accompanied by: Self / Same As Patient Allergies No Known Allergies Allergy (Verified 09/17/24 16:11) Medication List - Last Reconciled 09/17/24 by JESICA Brown No Known Home Meds Tobacco use date assessed: 09/17/24 Fall risk assessment: No Falls in past year Last assessed Fall Risk: 09/17/24 Dental Screening Dental Screen Date: 09/17/24 Did you have a dental visit in the last 12 months?: Yes Did you have a dental problem in the last 6 months where you did not have access to dental care?: No Was dental information given to patient?: Patient has dentist HPI GI issues/ establish care HPI Details The patient is a 64-year-old female presenting to [facility]. Mohawk-speaking female, presenting with son-in-law who interpreted for the patient. Refused photonics technician service. Previous PCP: Esau, came to the [place] a year ago Last visit: more than a year ago3 weeks ago for stomach pain Last PE: same as above Specialist: GI, OBGYN: Past medical history: left face lump surgical removed, htn Medications: nefedipine, vastarel MR Family HX: Problem: Left side of her face post surgery (question of removal of cyst from face): pain feels like pins and needles at the side of her face where the area was removed. Surgery was in June,. Chest pain: reports that it has been going for 1-2 years now. ekg normal, pain in reproducible. Question costochondritis? or possible angina given her medication list Reports that the patient is on Vastarel MR 35 mg and nidipine SR-20 for her heart disease Pain in left shoulder: pain down her whole left arm-she has been using icy hot, +ROM, pain with palpation of shoulder No deformity or apparent injury of the shoulder The patient reports a mild headache that she associates with her left side of face and her left shoulder pain Patient reports that she thinks that whatever was on her left side of face is radiating upwards in her head and down words in her left shoulder The patient son-in-law verbalized that the patient does not sleep and is up all sorts of time in the nights/mornings playing Buddha loudly-could be contributing to her headaches PFSH Medical History HTN (hypertension) Surgical History History of facial surgery (~05/2024) No pertinent past surgical history Family History Father No problems noted. Social History Household Members Other:: Son-In-Law and Daughter [facility] Are you a primary live in caregiver to a significant other at home: No Do you presently have visiting nurse or other home services: No Alcohol intake: never Patient Tobacco Use Status: Never used Tobacco e-Cigarette/Vaping Use: Never Used service: No Current occupational status: unemployed Cognitive needs: No Hearing needs: No Vision needs: Yes (Glasses) Questionnaire PHQ-9 Over the last 2 weeks, how often have you been bothered by any of the following problems? 1. Little interest or pleasure in doing things: not at all 2. Feeling down, depressed, or hopeless: not at all 3. Trouble falling or staying asleep, or sleeping too much: not at all 4. Feeling tired or having little energy: not at all 5. Poor appetite or overeating: not at all 6. Feeling bad about yourself - or that you are a failure or have let yourself or your family down: not at all 7. Trouble concentrating on things, such as reading the newspaper or watching television: not at all 8. Moving or speaking so slowly that other people could have noticed. Or the opposite - being so fidgety or restless that you have been moving around a lot more than usual: not at all 9. Thoughts that you would be better off or of hurting yourself in some way: not at all Total score: 0 Depression Screening Interpretation: Negative Depression Screening Done: Yes 60992 - PHQ-9 Billing: Yes Source: Developed by Drs. Cesar Savage, Yudy Dockery, Juan R Saravia and colleagues, with an educational aysha from [employer]. Thrive Questionnaire Date Thrive assessed: 09/17/24 I am a: Patient What is your living situation today?: I have a steady place to live Within the past 12 months, did the food you bought not last and you didn't have the money to get more?: Never true Within the past 12 months, did you worry whether your food would run out before you got money to buy more?: Never true Do you have trouble paying for medicines?: No Do you have trouble getting transportation to medical appointments?: No Do you have trouble paying your heating and electricity bill?: No Do you have trouble taking care of your child, family member or friend?: No Do you have trouble with day-to-day activities such as bathing, preparing meals, shopping, managing finances, etc.?: No Are you currently unemployed and looking for a job?: No Are you interested in more education?: No Please select the resources that you would like help with: None Currently or been in a relationship where the following occur: No concerns reported THRIVE Score: 0 AUDIT C Alcohol Use Questionnaire (AUDIT-C) 1. How often do you have a drink containing alcohol?: Never 3. How often do you have six or more drinks on one occasion?: Never Total Score: 0 RAND-7 AMB Questionnaire RAND-7 Date RAND - 7 assessed: 09/17/24 Feeling nervous, anxious, or on edge: 0 = Not at all Not being able to stop or control worryin = Not at all Worrying too much about different things: 0 = Not at all Trouble relaxin = Not at all Being so restless that it is hard to sit still: 0 = Not at all Becoming easily annoyed or irritable: 0 = Not at all Feeling afraid as if something awful might happen: 0 = Not at all Total RAND-7 score (0-4 normal; 5-9 mild; 10-14 moderate; 15-21 severe): 0 Source: Developed by Drs. Cesar Savage, Yudy Dockery, Juan R Saravia and colleagues, with an educational aysha from [employer]. RAND-7 Assessment Billing RAND-7 Assessment Tool: RAND-7 Assessment 99559 Review of Systems Const Reports headache(s) Eyes Denies loss of vision ENT Denies vertigo, Denies dizziness, Reports facial pain (left side of face, s/p skin lesion removal (unclear)), Reports headache(s) and Denies sore throat Card Reports chest pain (reproducible with palpation), Denies leg edema and Denies lightheadedness Resp Denies cough, Denies hemoptysis and Denies wheezing GI Denies abdominal pain, Denies melena, Reports constipation, Denies diarrhea and Denies vomiting Denies urinary frequency, Denies dysuria and Denies urinary urgency Musc Reports arthralgias (left shoulder pain), Denies joint swelling, Denies numbness and Denies tingling Neuro Denies Abnormal speech present, Denies behavioral changes, Denies vertigo, Denies dizziness, Reports headache(s), Denies loss of vision, Denies memory loss, Denies numbness and Denies tingling Psych Denies anxiety, Denies behavioral changes, Denies depression, Denies memory loss and Denies panic attacks Audi/Lymph Denies easy bleeding and Denies easy bruising Aller/Immun Denies wheezing Physical exam (Primary Care) Vital Signs: Last Vital Signs Temp 97.4 F 09/17/24 15:47 Pulse 68 09/17/24 15:47 Resp 16 09/17/24 15:47 BP 130/74 09/17/24 15:47 Pulse Ox 96 09/17/24 15:47 Oxygen Delivery Method Room Air 09/17/24 15:47 BMI result Body Mass Index 23.2 Tobacco/Smoking Status: Tobacco use Status Tobacco use date assessed 09/17/24 09/17/24 16:06 Patient Tobacco Use Status Never used Tobacco 09/17/24 16:01 e-Cigarette/Vaping Use Never Used 09/17/24 16:06 PHQ-9: PHQ-9 Score PHQ-9: Total score 0 09/18/24 17:51 Depression Screening Interpretation: Negative Thrive Assessment: Date of Thrive Assessment Date Thrive assessed 09/17/24 09/17/24 16:06 Currently or been in a relationship where the following occur: No concerns reported Const General: healthy appearing, no acute distress, alert and awake Nutritional Appearance: well nourished Orientation/consciousness: oriented to person, oriented to place and oriented to time HENMT Ears: TM's normal bilaterally General nose exam: Normal nasal mucous membranes and turbinates present Eyes Conjunctivae: conjunctivae normal Sclerae: sclerae normal Pupils: Equal, round and reactive pupils present Neck Neck: Yes no lymphadenopathy and Yes no JVD Thyroid: Thyroid normal Carotids: no bruits Resp Effort & Inspection: normal respiratory effort and not tachypneic Auscultation: no crackles, no rales, no rhonchi and no wheezes Cardio Rate: regular rate Rhythm: regular rhythm Heart sounds: no murmurs and normal S1 and S2 GI Palpation (GI): Soft to palpation, nontender, no hepatomegaly and no splenomegaly Auscultation: normal bowel sounds Back/Spine/Pelvis Cervical Spine: No Cervical spine tenderness Thoracic/Lumbar Spine: No thoracic spinal tenderness and No lumbar spinal tenderness Skin General skin exam: dry skin and scars (left side of face (s/p lesion removal)) Neuro General: oriented to person, oriented to place and oriented to time Cranial nerves: Yes Equal, round and reactive pupils present Speech: No Abnormal speech present Gait exam (Neuro): Normal gait present Motor exam (neuro): no tremor noted Extrem Right upper extremity: full ROM Left upper extremity: full ROM Right lower extremity: full ROM; no edema Left lower extremity: full ROM; no edema Psych Mental Status: mental status grossly normal Speech and movement: Normal speech and movement present Affect: normal affect Attitude: cooperative Thought process: Normal thought process present Office Procedures EKG 98924-Hbyygenttldxzzhqy, Complete Coding Level of Care Code New Pt Level 4 (07046) Diagnoses Hypertension, unspecified type I10 Hypertension type: unspecified Chronic left shoulder pain M25.512; G89.29 Chronicity: chronic Left-sided face pain R51.9 Nonintractable headache, unspecified chronicity pattern, unspecified headache type R51.9 Headache type: unspecified Headache chronicity pattern: unspecified pattern Intractability: not intractable CPT Codes EKG - CPT: 33065-Hbtmlppwysdzgcdtj, Complete ([id number]) Additional Codes RAND-7 Assessment Billing - RAND-7 Assessment Tool: RAND-7 Assessment 39525 ([id number]) PHQ-9 - 12325 - PHQ-9 Billing: Yes ([id number]) Time Spent (min) 43 Assessment & Plan Assessment & Plan (1) HTN (hypertension): Code(s): I10 - Essential (primary) hypertension Category: Medical Qualifiers: Hypertension type: unspecified Qualified Code(s): I10 - Essential (primary) hypertension Plan: The patient moved from [facility] about a year ago. Reports that she was being monitored for heart issues, particularly he blood pressure gets high and she is having recurrent stress pain with or without activity. Medication list shows nidipine SR-20, vastarel MR. The patient is not sure if she was diagnosed with angina. There is question for costochondritis because her pain is reproducible. Will start the patient on amlodipine 5 mg daily and stop her other medications. Will order a stress test to further evaluate. There was a cardiac referral placed in December of last year. I suspect that she was not seen, will reach out to the consults personnel to see if a new referral needs to be placed. Reinforced a low-sodium diet. May use NSAIDs for pain. (2) Left shoulder pain: Code(s): M25.512 - Pain in left shoulder Category: Medical Qualifiers: Chronicity: chronic Qualified Code(s): M25.512 - Pain in left shoulder; G89.29 - Other chronic pain Plan: Left shoulder pain ongoing. Positive range of motion, no swelling or crepitus noted. We will order and left shoulder x-ray to further evaluate. May use OTC NSAIDs as needed. (3) Left-sided face pain: Code(s): R51.9 - Headache, unspecified Category: Medical Plan: Tissue left side of face from post surgical removal of skin lesion. Patient is unsure what lesion was, but was told it was not anything to worry about. Patient is complaining of pain consistent with nerve pain close to the area of the scar. Gabapentin 100 mg p.o. b.i.d. started. (4) Headache: Code(s): R51.9 - Headache, unspecified Category: Medical Qualifiers: Headache type: unspecified Headache chronicity pattern: unspecified pattern Intractability: not intractable Qualified Code(s): R51.9 - Headache, unspecified Plan: Reports that her headache started after removal of lesion from the left side of her face. She thinks that the pain is related to this lesion. The patient's son-in-law reports that the patient stays up late at night playing Buddha loudly. Ready could be related to lack of sleep or even poor fluid intake. Encourage patient to get adequate amount of sleep and make sure she is well hydrated. Recommended to patient and son-in-law to start magnesium oxide 400 mg at bedtime and vitamin B2 400 mg daily. We will continue to monitor Orders: Orders Complete Blood Count Auto Diff 09/18/24 Z00.00 - Encounter for general adult medical examination without abnormal findings UA CC w/rflx Micro + Cult 09/18/24 Z. - Encounter for general adult medical examination without abnormal findings Lipid Panel 09/18/24 Z.00 - Encounter for general adult medical examination without abnormal findings Glucose Fasting 09/18/24 Z. - Encounter for general adult medical examination without abnormal findings CA cardiopulmonary stress test Today R07.9 - Chest pain, unspecified AMB EKG-In Office 09/17/24 Z13.6 - Encounter for screening for cardiovascular disorders XR shoulder LT min 2V 09/18/24 M25.512 - Pain in left shoulder Comprehensive [place]. Panel Fast 09/18/24 Z00.00 - Encounter for general adult medical examination without abnormal findings Vitamin D 25-OH Total 09/18/24 Z.00 - Encounter for general adult medical examination without abnormal findings TSH reflex Free T4 09/18/24 Z00.00 - Encounter for general adult medical examination without abnormal findings Medications: New gabapentin 100 mg PO BID 60 caps 1RF amlodipine 5 mg PO DAILY 30 tabs 3RF I10 - Essential (primary) hypertension
--- OUTSIDE RECORDS SUMMARY | 2024-09-17 16:50 | XMS_ITS | Clinical Summary ---
Author Organization [employer] Address [address] [place] [address] Care Team Providers Care Bobbin Winder Tender Name Role Phone Unavailable Primary Care Provider [...] patient's age to complete this topic Insurance [facility] STANDARD
== END 2024-09-17 17:05 | disposition home or self-care (01) ==
LOC: HO.HMCH 15:29
DX: I10 Essential (primary) hypertension (principal); M25.512 Pain in left shoulder; G89.29 Other chronic pain; R51.9 Headache, unspecified

== ENCOUNTER → 2024-09-17 15:29 | Outpatient (BNVA) | payer MEDICAID, SELFPAY | DX: R07.9 Chest pain, unspecified (principal); I10 Essential (primary) hypertension; M25.512 Pain in left shoulder; R51.9 Headache, unspecified; G89.29 Other chronic pain | CPT/HCPCS: 93005; 96127; 99202 ==

== ENCOUNTER 2024-09-18 08:22 | Outpatient (REF) | payer MEDICAID, SELFPAY ==
--- NOTE | ~2024-09-18 | XR_ITS ---
EXAMINATION: XR SHOULDER 2 OR MORE VIEWS LEFT HISTORY: M25.512 - Pain in left shoulder COMPARISON: There are no prior studies available for comparison. FINDINGS: Four views of the left shoulder are submitted. Osseous mineralization is normal. There is no fracture or dislocation. The glenohumeral joint is maintained. There is mild narrowing of the AC joint. Soft tissue calcifications adjacent to the greater tuberosity of the humerus are likely related to the rotator cuff.
[2024-09-18 08:35] LABS: MANUAL DIFF FLAG NO
--- OUTSIDE RECORDS SUMMARY | 2024-09-18 08:36 | XMS_ITS | Clinical Summary ---
Author Organization [employer] Address [address] [place] [address] Care Team Providers Care Online User Experience Strategist Name Role Phone Unavailable Primary Care Provider [...] patient's age to complete this topic Insurance [facility] STANDARD
[2024-09-18 08:41] LABS: Basophils Absolute Auto 0.1 X10*3/uL (0.0-0.2); Basophils Percent Auto 1.3 % (0-2); Eosinophils Absolute Auto 0.3 X10*3/uL (0.0-0.4); Eosinophils Percent Auto 5.4 % (0-4); Hematocrit 39.9 % (37.0-47.0); Hemoglobin 12.6 g/dl (12.0-16.0); Imm Gran Abs Auto 0.02 X10*3/uL (0.00-0.03); Imm Gran Pct Auto 0.4 % (0.0-0.4); Lymphocytes Absolute Auto 1.6 X10*3/uL (1.2-4.9); Lymphocytes Percent Auto 29.4 % (20-40); Mean Corpuscular HGB Conc 31.6 g/dl (31.0-35.0); Mean Corpuscular Hemoglobin 26.9 pg (27.0-33.0); Mean Corpuscular Volume 85.1 fL (80.0-98.0); Mean Platelet Volume 8.7 fL (9.4-12.3); Monocytes Absolute Auto 0.5 X10*3/uL (0.1-1.2); Monocytes Percent Auto 8.2 % (2-11); Neutrophils Absolute Auto 3.1 x10*3/uL (2.0-8.3); Neutrophils Percent Auto 55.3 % (45-73); Platelet Count 302 X10*3/uL (160-400); Red Blood Count 4.69 X10*6/uL (4.20-5.50); Red Cell Distribution Width 13.2 % (11.0-16.0); White Blood Count 5.5 X10*3/uL (4.8-10.8)
[2024-09-18 08:43] LABS: Appearance Urine Clear; Color Urine Yellow; Glucose Urine UA Negative (Negative); Leukocyte Esterase Urine Trace (Negative); Nitrite Urine Negative (Negative); Specific Gravity - Urine 1.015 (1.005-1.025); UMIC TRIGGER UACC YES; Urine Blood Negative (Negative); Urine Ketones Negative (Negative); Urine Protein Negative (Neg-Trace)
[2024-09-18 08:48] LABS: Bacteria Urine None Seen (None Seen); Hyaline Casts Urine 0-2 /LPF (0-2); RBC Urine 0-2 /HPF (0-2); WBC Urine 0-5 /HPF (0-5)
[2024-09-18 09:12] LABS: Alanine Aminotransferase 37 U/L (0-31); Albumin Level 4.4 g/dL (3.5-5.0); Alkaline Phosphatase 87 U/L (39-117); Anion Gap 14 (12-20); Aspartate Amino Transferase 34 U/L (5-31); Bilirubin Total 0.3 mg/dL (0.0-1.0); Blood Urea Nitrogen 8 mg/dL (9-16); Calcium 9.6 mg/dL (8.4-10.2); Carbon Dioxide 29 mmol/L (22-29); Chloride 103 mmol/L (96-108); Cholesterol 263 mg/dL (<200); Estimated Glomerular Filt Rate > 60; Glucose Fasting 105 mg/dL (60-99); HDL Cholesterol 38 mg/dL (>40); Potassium 4.2 mmol/L (3.3-5.1); Sodium 142 mmol/L (135-145); Total Protein 7.6 g/dL (6.5-8.0); Triglycerides 782 mg/dL (<150)
[2024-09-18 09:29] LABS: TSH reflex Free T4 1.54 uIU/mL (0.32-4.0); Vitamin D 25-OH Total 18.1 ng/mL (>30)
== END 2024-09-18 08:23 | disposition home or self-care (01) ==
LOC: HO.XRAY 08:22
DX: M25.512 Pain in left shoulder (principal); Z00.00 Encounter for general adult medical examination without abnormal findings
CPT/HCPCS: 36415; 73030; 80053; 80061; 81001; 82306; 84443; 85025

== ENCOUNTER → 2024-09-18 08:39 | Outpatient (BNV) | payer MEDICAID, SELFPAY | PROVIDERS: Visit Provider Radiology Diagnostic Radiology | DX: M25.512 Pain in left shoulder (principal) | CPT/HCPCS: 73030 ==

== ENCOUNTER → 2024-10-02 10:13 | Outpatient (REF) | payer MEDICAID, SELFPAY ==
--- NOTE | 2024-10-02 10:20 | CA_ITS ---
Acquisition Time: 2024-10-02 10:50:45 Total Exercise Time: 00:00:50 Test Indications: CP L SHOULDER PAIN Medications: Protocol: MADISYN Max HR: 102 BPM 66% of Pred: 154 BPM Max BP: 124/80 mmHG Max Work Load: 2.5 METS Exercise stress test with exercise 50 secs of Madisyn Protocol, achieving 65% MPHR, requesting to stop due to speed and hard time walking on treadmill, with reports of contant 8/10 left sided chest discomfort at baseline that goes up into her shoulder, without any arrythmias, with normotensive response to exercise. Nondiagnostic EKG due to inconclusive test. Would recommend pahramacological nuclear stress test for further evaluation. Test reviewed with Dr. Pak. Referred By: Mejia Perkins Electronically Signed By: Galen Rm
--- OUTSIDE RECORDS SUMMARY | 2024-10-02 11:04 | XMS_ITS | Clinical Summary ---
Author Organization [employer] Address [address] [place] [address] Care Team Providers Care Assistant Pressman Name Role Phone Unavailable Primary Care Provider [...] on patient's age to complete this topic Procedures Procedure Name Priority Date/Time Associated Diagnosis Comments XR SHOULDER 2+ VIEWS LEFT Routine 09/18/2024 8:39 AM EDT from Last 3 Months Results * XR Shoulder 2+ Views Left (09/18/2024 8:39 AM EDT) Anatomical Region Laterality Modality Upper Extremities, Shoulder Left Radi ographic Imaging 09/18/2024 8:39 AM EDT Narrative 09/18/2024 2:37 PM EDT ? [facility] ?[address] ?[place] [address] ?XRay Report ? Signed ? Patient: Run,Khonnet ?MR#: [id number] ? : 1960 ?Acct:[id number] ? Age/Sex: 64 / F ?ADM Date: 01/03/24 ? Loc: HO.US ? Attending Dr: Teto Vickers MD ? Ordering Physician: Mejia Perkins ?? Date of Service: 09/18/24 ?? Procedure(s): XR shoulder LT min 2V ?? Accession Number(s): [id number] ? cc: Mejia Perkins ? EXAMINATION: ??XR SHOULDER 2 OR MORE VIEWS LEFT ? HISTORY: M25.512 - Pain in left shoulder ? COMPARISON: There are no prior studies available for comparison. ? FINDINGS: ? Four views of the left shoulder are submitted. ??Osseous mineralization ?? is normal. ??There is no fracture or dislocation. ??The glenohumeral ?? joint is maintained. There is mild narrowing of the AC joint. ??Soft ?? tissue calcifications adjacent to the greater tuberosity of the humerus ?? are likely related to the rotator cuff. ? XR/XR shoulder LT min 2V ?? IMPRESSION: ? Mild narrowing of the AC joint. Probable rotator cuff calcifications. ? Electronically signed by: ??Cesar Viveros MD ??09/18/2024 02:34 PM EDT ? Dictated By: ?Cesar Viveros MD ? Signed By: ?<Electronically signed by Cesar Viveros MD in OV> ?09/18/24 1434 ? DD/ 0839 ? TD/TT: 09/18/24 0900 ? National Sales: ? Procedure Note Rosaline Israel - 09/18/[address] [address] XRay Report Signed Patient: Louann SmithMR#: [id number] : 8Acct:[id number] Age/Sex: 64 / FADM Date: 01/03/24 Loc: HO.US Attending Dr: Teto Vickers MD Ordering Physician: Mejia Perkins Date of Service: 09/18/24 Procedure(s): XR shoulder LT min 2V Accession Number(s): [id number] cc: Mejia Perkins AGRICULTURE INSPECTOR-C EXAMINATION: XR SHOULDER 2 OR MORE VIEWS LEFT HISTORY: M25.512 - Pain in left shoulder COMPARISON: There are no prior studies available for comparison. FINDINGS: Four views of the left shoulder are submitted. Osseous mineralization is normal. There is no fracture or dislocation. The glenohumeral joint is maintained. There is mild narrowing of the AC joint. Soft tissue calcifications adjacent to the greater tuberosity of the humerus are likely related to the rotator cuff. XR/XR shoulder LT min 2V IMPRESSION: Mild narrowing of the AC joint. Probable rotator cuff calcifications. Electronically signed by: Cesar Viveros MD 09/18/2024 02:34 PM EDT RP Dictated By: Cesar Viveros MD Signed By: <Electronically signed by Cesar Viveros MD in OV> 09/18/24 1434 DD/ 0839 TD/TT: 09/18/24 0900 National Sales: [facility] External Provider IMG XR PROCEDURES Final Result from Last 3 Months Insurance [facility] STANDARD
== END ==
LOC: HO.CARD 10:13
DX: R07.9 Chest pain, unspecified (principal)
CPT/HCPCS: 93017

== ENCOUNTER → 2024-10-02 10:20 | Outpatient (BNV) | payer MEDICAID, SELFPAY | DX: R07.9 Chest pain, unspecified (principal) | CPT/HCPCS: 93016; 93018 ==

== ENCOUNTER 2024-10-30 14:39 | Outpatient (AMB) | payer MEDICAID, SELFPAY ==
[2024-10-30 14:44] VITALS: BP 116/66; PULSE 68; RESP 18; TEMP 36.4; O2SAT 97; BMI 23.1
--- NOTE | 2024-10-30 14:44 | A.OFFPC_ITS ---
Vital Signs 3 10/30/24 14:44 Height 4 ft 10 in Weight 110 lb 6.4 oz BMI 23.1 BP 116/66 Blood Pressure Location Lt brachial Position Sitting Respiration 18 Pulse 68 Pulse Source Pulse Oximeter Temp 97.6 F Temp Source Oral Pulse Oximetry (%) 97 Oxygen Delivery Method Room Air Intake Visit Reasons: annual Distribution Center Manager Required: No Accompanied by: Son-In-Law Allergies No Known Allergies Allergy (Verified 09/17/24 16:11) Medication List - Last Reconciled 10/30/24 by JESICA Brown amlodipine 5 mg PO DAILY cholecalciferol (vitamin D3) 25 mcg PO DAILY 30 days gabapentin 100 mg PO BID gemfibrozil 600 mg PO BID 30 days sennosides (senna) 17.2 mg PO BEDTIME Tobacco use date assessed: 10/30/24 Fall risk assessment: No Falls in past year Last assessed Fall Risk: 10/30/24 Dental Screening Dental Screen Date: 10/30/24 Did you have a dental visit in the last 12 months?: No Did you have a dental problem in the last 6 months where you did not have access to dental care?: No Was dental information given to patient?: No HPI annual 2 HPI0 Details Dentist: not up to date Eye: states that this has not been checked for a while, but she has good vision Snellen: Right: Left: Corrected vision: glasses STI screening: Colonoscopy: will order, Pap Smer: does not seem to have this done before, will refer her [facility] mammogram: due shingles vaccine: due Pneumonia vaccine: 2022 DEXA scan: due-will put in the order. PHQ-9: Flu:no COVID: no Tdap:declines Diet: Reports does not eat that much Exercise: reports she is not active The patient is a 64-year-old female presenting with routine health maintenance and evaluation of chest and nerve pain. The nerve pain is post-surgical, associated with a shooting sensation, believed to be related to nerve damage from an earlier surgical procedure. Gabapentin has been prescribed for this condition. There was some initial misunderstanding regarding her medication due to her history of a hiatal hernia. The patient underwent a successful chemical stress test due to her inability to perform the treadmill-based version. This was indicated because she could only exercise for 50 seconds. Significant elevated triglyceride levels were identified during a recent blood test. Health maintenance coverage included the review of dental check-ups, eye exams, and colonoscopy, none of which were recent. Required assessments for osteoporosis via a DEXA scan and mammogram due to age were discussed. The patient was seen to have received a pneumonia vaccine recently, yet is due for shingles vaccination. [facility] Medical History HTN (hypertension) Surgical History History of facial surgery (~05/2024) No pertinent past surgical history Family History Father No problems noted. Social History Household Members Other:: Son-In-Law and Daughter [facility] Are you a primary manager intensive care to a significant other at home: No Do you presently have visiting nurse or other home services: No Alcohol intake: never Patient Tobacco Use Status: Never used Tobacco e-Cigarette/Vaping Use: Never Used service: No Current occupational status: unemployed Cognitive needs: No Hearing needs: No Vision needs: Yes (Glasses) Questionnaire PHQ-9 Over the last 2 weeks, how often have you been bothered by any of the following problems? 1. Little interest or pleasure in doing things: not at all 2. Feeling down, depressed, or hopeless: not at all 3. Trouble falling or staying asleep, or sleeping too much: not at all 4. Feeling tired or having little energy: several days 5. Poor appetite or overeating: several days 6. Feeling bad about yourself - or that you are a failure or have let yourself or your family down: not at all 7. Trouble concentrating on things, such as reading the newspaper or watching television: not at all 8. Moving or speaking so slowly that other people could have noticed. Or the opposite - being so fidgety or restless that you have been moving around a lot more than usual: not at all 9. Thoughts that you would be better off or of hurting yourself in some way: not at all Total score: 2 Depression Screening Interpretation: Negative Depression Screening Done: Yes Source: Developed by Drs. Cesar Savage, Juan R Montgomery and colleagues, with an educational aysha from [employer]. Thrive Questionnaire Date Thrive assessed: 10/30/24 I am a: Patient What is your living situation today?: I have a steady place to live Within the past 12 months, did the food you bought not last and you didn't have the money to get more?: I choose not to answer this question Within the past 12 months, did you worry whether your food would run out before you got money to buy more?: I choose not to answer this question Do you have trouble paying for medicines?: No Do you have trouble getting transportation to medical appointments?: No Do you have trouble paying your heating and electricity bill?: No Do you have trouble taking care of your child, family member or friend?: No Do you have trouble with day-to-day activities such as bathing, preparing meals, shopping, managing finances, etc.?: No Are you currently unemployed and looking for a job?: No Are you interested in more education?: No Please select the resources that you would like help with: None Currently or been in a relationship where the following occur: I choose not to answer THRIVE Score: 0 AUDIT C Alcohol Use Questionnaire (AUDIT-C) 1. How often do you have a drink containing alcohol?: Never 3. How often do you have six or more drinks on one occasion?: Never Total Score: 0 Score Reviewed/Action Taken: No RAND-7 AMB Questionnaire RAND-7 Date RAND - 7 assessed: 10/30/24 Feeling nervous, anxious, or on edge: 0 = Not at all Not being able to stop or control worryin = Not at all Worrying too much about different things: 0 = Not at all Trouble relaxin = Not at all Being so restless that it is hard to sit still: 1 = Several days Becoming easily annoyed or irritable: 0 = Not at all Feeling afraid as if something awful might happen: 0 = Not at all Total RAND-7 score (0-4 normal; 5-9 mild; 10-14 moderate; 15-21 severe): 1 Source: Developed by Yudy Montgomery Sarkis, Juan R Saravia and colleagues, with an educational aysha from [employer]. Review of Systems Const Details: - Cardiovascular: Reports chest pain in areas particularly on the right side of the body and face; denies any other cardiovascular symptoms. - Neurological: Reports nerve pain described as shooting pain. - Gastrointestinal: Reports abdominal pain on the right side. - Respiratory: Denies shortness of breath. Reports headache(s) (associated with shooting pain from left side of face scar tissue area) Eyes Denies loss of vision ENT Denies vertigo, Denies dizziness, Reports headache(s) (associated with shooting pain from left side of face scar tissue area) and Denies sore throat Card Reports chest pain (right sided-ongoing), Denies leg edema and Denies lightheadedness Resp Denies cough, Denies hemoptysis and Denies wheezing GI Reports abdominal pain (right upper quadrant), Denies melena, Reports bloating, Reports constipation, Denies diarrhea and Denies vomiting Denies urinary frequency, Denies dysuria and Denies urinary urgency Musc Reports arthralgias (left shoulder), Denies joint swelling, Denies numbness and Denies tingling Neuro Denies Abnormal speech present, Denies behavioral changes, Denies vertigo, Denies dizziness, Reports headache(s) (associated with shooting pain from left side of face scar tissue area), Denies loss of vision, Denies memory loss, Denies numbness and Denies tingling Psych Denies anxiety, Denies behavioral changes, Denies depression, Denies memory loss and Denies panic attacks Audi/Lymph Denies easy bleeding and Denies easy bruising Aller/Immun Denies wheezing Physical exam (Primary Care) Vital Signs: Last Vital Signs Temp 97.6 F 10/30/24 14:44 Pulse 68 10/30/24 14:44 Resp 18 10/30/24 14:44 BP 116/66 10/30/24 14:44 Pulse Ox 97 10/30/24 14:44 Oxygen Delivery Method Room Air 10/30/24 14:44 BMI result Body Mass Index 23.1 Tobacco/Smoking Status: Tobacco use Status Tobacco use date assessed 10/30/24 10/30/24 15:03 Patient Tobacco Use Status Never used Tobacco 10/30/24 14:45 e-Cigarette/Vaping Use Never Used 10/30/24 14:45 PHQ-9: PHQ-9 Score PHQ-9: Total score 2 10/30/24 15:28 Depression Screening Interpretation: Negative Thrive Assessment: Date of Thrive Assessment Date Thrive assessed 10/30/24 10/30/24 15:03 Currently or been in a relationship where the following occur: I choose not to answer Const General: healthy appearing, no acute distress, alert and awake Nutritional Appearance: well nourished Orientation/consciousness: oriented to person, oriented to place and oriented to time HENMT Ears: TM's normal bilaterally General nose exam: Normal nasal mucous membranes and turbinates present Face images: 2 1. left side of face scar tissue. s/p removal of skin lesion Eyes Conjunctivae: conjunctivae normal Sclerae: sclerae normal Pupils: Equal, round and reactive pupils present Neck Neck: Yes no lymphadenopathy and Yes no JVD Thyroid: Thyroid normal Carotids: no bruits Resp Effort & Inspection: normal respiratory effort and not tachypneic Auscultation: no crackles, no rales, no rhonchi and no wheezes Cardio Rate: regular rate Rhythm: regular rhythm Heart sounds: no murmurs and normal S1 and S2 GI Palpation (GI): Soft to palpation, nontender, no hepatomegaly and no splenomegaly Auscultation: normal bowel sounds Skin General skin exam: no rashes or lesions noted and dry skin Neuro General: oriented to person, oriented to place and oriented to time Cranial nerves: Yes Equal, round and reactive pupils present Speech: No Abnormal speech present Gait exam (Neuro): Normal gait present Motor exam (neuro): no tremor noted Extrem Right upper extremity: full ROM Left upper extremity: full ROM Right lower extremity: full ROM; no edema Left lower extremity: full ROM; no edema Psych Mental Status: mental status grossly normal Speech and movement: Normal speech and movement present Affect: normal affect Attitude: cooperative Thought process: Normal thought process present Results Reviewed Results Reviewed: Laboratory Tests 09/18/24 09/18/24 08:30 08:34 WBC 5.5 RBC 4.69 Hgb 12.6 Hct 39.9 MCV 85.1 MCH 26.9 L MCHC 31.6 RDW 13.2 Plt Count 302 Sodium 142 Potassium 4.2 Chloride 103 Carbon Dioxide 29 Anion Gap 14 BUN 8 L Creatinine 0.73 Estimated GFR > 60 Fasting Glucose 105 H Calcium 9.6 Total Bilirubin 0.3 AST 34 H ALT 37 H Alkaline Phosphatase 87 Total Protein 7.6 Albumin 4.4 Triglycerides 782 H Cholesterol 263 H HDL Cholesterol 38 L 25-OH Vitamin D Total 18.1 L TSH 1.54 Urine Color Yellow Urine Appearance Clear Urine pH 7.0 Ur Specific [place] 1.015 Urine Protein Negative Urine Glucose (UA) Negative Urine Ketones Negative Urine Blood Negative Urine Nitrite Negative Ur Leukocyte Esterase Trace H Urine RBC 0-2 Urine WBC 0-5 Ur Squamous Epith Cells 3-5 Hyaline Casts 0-2 Coding Level of Care Code Est Pt Prev Care >65y(18586) Diagnoses Annual physical exam Z00.00 Vitamin D deficiency E55.9 Elevated triglycerides with high cholesterol E78.2 Nonintractable headache, unspecified chronicity pattern, unspecified headache type R51.9 Headache type: unspecified Headache chronicity pattern: unspecified pattern Intractability: not intractable Left-sided face pain R51.9 Hypertension, unspecified type I10 Hypertension type: unspecified Elevated liver enzymes R74.8 Chronic left shoulder pain M25.512; G89.29 Chronicity: chronic Time Spent (min) 41 Assessment & Plan Assessment & Plan (1) Annual physical exam: Code(s): Z00.00 - Encounter for general adult medical examination without abnormal findings Category: Medical Plan: Preventative guidelines and recent labs reviewed with the patient and son-in-law. She is due for colonoscopy-the already being seen by GI, was planning on doing EGD/colonoscopy. Mammogram ordered and OBGYN referral placed. Encouraged shingles vaccine and eyes and dental evaluation. Patient already received pneumonia vaccine in 2022. Patient is also due for a DEXA scan order placed. (2) Vitamin D deficiency: Code(s): E55.9 - Vitamin D deficiency, unspecified Category: Medical Plan: Vitamin D3 25 mcg daily ordered (3) Elevated triglycerides with high cholesterol: Code(s): E78.2 - Mixed hyperlipidemia Category: Medical Plan: Reinforced low-cholesterol diet and activity as tolerated Gemfibrozil 600 mg b.i.d. ordered We will recheck lipid in 3 months (4) Headache: Code(s): R51.9 - Headache, unspecified Category: Medical Qualifiers: Headache type: unspecified Headache chronicity pattern: unspecified pattern Intractability: not intractable Qualified Code(s): R51.9 - Headache, unspecified Plan: Reports that her headache started after removal of lesion from the left side of her face. She thinks that the pain is related to this lesion. The patient's son-in-law reports that the patient stays up late at night playing Buddha loudly. Ready could be related to lack of sleep or even poor fluid intake. Encourage patient to get adequate amount of sleep and make sure she is well hydrated. Recommended to patient and son-in-law to start magnesium oxide 400 mg at bedtime and vitamin B2 400 mg daily. We will continue to monitor (5) Left-sided face pain: Code(s): R51.9 - Headache, unspecified Category: Medical Plan: Tissue left side of face from post surgical removal of skin lesion. Patient is unsure what lesion was, but was told it was not anything to worry about. Patient is complaining of pain consistent with nerve pain close to the area of the scar. Gabapentin 100 mg p.o. b.i.d. started. Apparently, the patient has not started this medication as yet. Her son-in-law requested medication for this pain again and when pointed out the medication they replied that they did not know that the medication was for pain. (6) HTN (hypertension): Code(s): I10 - Essential (primary) hypertension Category: Medical Qualifiers: Hypertension type: unspecified Qualified Code(s): I10 - Essential (primary) hypertension Plan: The patient moved from [facility] about a year ago. Reports that she was being monitored for heart issues, particularly he blood pressure gets high and she is having recurrent stress pain with or without activity. Medication list shows nidipine SR-20, vastarel MR. The patient is not sure if she was diagnosed with angina. There is question for costochondritis because her pain is reproducible. Will start the patient on amlodipine 5 mg daily and stop her other medications. Will order a stress test to further evaluate. There was a cardiac referral placed in December of last year. I suspect that she was not seen, will reach out to the consults personnel to see if a new referral needs to be placed. Reinforced a low-sodium diet. Chemical stress test was ordered because the patient was not able to tolerate ambulating on the treadmill. She lasted approximately 50 seconds and complained of chest pain with no significant changes in EKG. (7) Elevated liver enzymes: Code(s): R74.8 - Abnormal levels of other serum enzymes Category: Medical Plan: Mildly elevated liver enzymes. Right upper quadrant pain has been worked up by GI in his suspected to be possibly costochondritis or trapped gas. Suspect that the patient liver enzymes are related to her elevated cholesterol. Discouraged alcohol and acetaminophen usage. We will obtain CMP in 3 months (8) Left shoulder pain: Code(s): M25.512 - Pain in left shoulder Category: Medical Qualifiers: Chronicity: chronic Qualified Code(s): M25.512 - Pain in left shoulder; G89.29 - Other chronic pain Plan: Left shoulder pain ongoing. Positive range of motion, no swelling or crepitus noted. Shoulder x-ray completed with no findings that explains the patient pain. May use OTC NSAIDs as needed. Orders: Orders 2 Comprehensive [place]. Panel Fast 3 Months E55.9 - Vitamin D deficiency, unspecified, E78.2 - Mixed hyperlipidemia, I10 - Essential (primary) hypertension, R74.8 - Abnormal levels of other serum enzymes UA CC w/rflx Micro + Cult 3 Months E55.9 - Vitamin D deficiency, unspecified, E78.2 - Mixed hyperlipidemia, I10 - Essential (primary) hypertension, R74.8 - Abnormal levels of other serum enzymes TSH reflex Free T4 3 Months E55.9 - Vitamin D deficiency, unspecified, E78.2 - Mixed hyperlipidemia, I10 - Essential (primary) hypertension, R74.8 - Abnormal levels of other serum enzymes Complete Blood Count Auto Diff 3 Months E55.9 - Vitamin D deficiency, unspecified, E78.2 - Mixed hyperlipidemia, I10 - Essential (primary) hypertension, R74.8 - Abnormal levels of other serum enzymes Hemoglobin A1c 3 Months E55.9 - Vitamin D deficiency, unspecified, E78.2 - Mixed hyperlipidemia, I10 - Essential (primary) hypertension, R74.8 - Abnormal levels of other serum enzymes Vitamin D 25-OH Total 3 Months E55.9 - Vitamin D deficiency, unspecified, E78.2 - Mixed hyperlipidemia, I10 - Essential (primary) hypertension, R74.8 - Abnormal levels of other serum enzymes
== END 2024-10-30 16:17 | disposition home or self-care (01) ==
LOC: HO.HMCH 14:40
DX: Z00.00 Encounter for general adult medical examination without abnormal findings (principal); E55.9 Vitamin D deficiency, unspecified; E78.2 Mixed hyperlipidemia; R51.9 Headache, unspecified; I10 Essential (primary) hypertension; R74.8 Abnormal levels of other serum enzymes; M25.512 Pain in left shoulder; G89.29 Other chronic pain

== ENCOUNTER → 2024-10-30 14:39 | Outpatient (BNVA) | payer MEDICAID, SELFPAY | DX: Z00.00 Encounter for general adult medical examination without abnormal findings (principal); E55.9 Vitamin D deficiency, unspecified; E78.2 Mixed hyperlipidemia; R51.9 Headache, unspecified; I10 Essential (primary) hypertension; R74.8 Abnormal levels of other serum enzymes; G89.29 Other chronic pain | CPT/HCPCS: 99397 ==

== ENCOUNTER 2024-11-27 13:27 | Outpatient (REF) | payer MEDICAID, SELFPAY ==
--- OUTSIDE RECORDS SUMMARY | 2024-11-27 13:44 | XMS_ITS | Clinical Summary ---
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 [facility] ?[address] ?[place] [address] ?XRay Report ? Signed ? Patient: Run,Khonnet ?MR#: [id number] ? : 1960 ?Acct:[id number] ? Age/Sex: 64 / F ?ADM Date: 01/03/24 ? Loc: HO.US ? Attending Dr: Teto Vickers MD ? Ordering Physician: Mejia Perkins ?? Date of Service: 09/18/24 ?? Procedure(s): XR shoulder LT min 2V ?? Accession Number(s): [id number] ? cc: Mejia Perkins ? EXAMINATION: ??XR [...] DD/ 0839 ? TD/TT: 09/18/24 0900 ? Tile Burner: ? Procedure Note Lindy, Rosaline - 09/18/[address] [address] XRay Report Signed Patient: Lizett Smith#: [id number] : 8Acct:[id number] Age/Sex: 64 / FADM Date: 01/03/24 Loc: .US Attending Dr: Teto Vickers MD Ordering Physician: Mejia Perkins Date of Service: 09/18/24 Procedure(s): XR shoulder LT min 2V Accession Number(s): [id number] cc: Mejia Perkins EXAMINATION: XR SHOULDER 2 OR MORE VIEWS [...] Cesar Viveros MD 09/18/2024 02:34 PM EDT Dictated By: Cesar Viveros MD Signed By: <Electronically signed by Cesar Viveros MD in OV> 09/18/24 1434 DD/ 0839 TD/TT: 09/18/24 0900 Tile Burner: [facility] External Provider IMG XR PROCEDURES Final Result from Last 3 Months Insurance [facility] ST[facility]
== END 2024-11-27 13:28 | disposition home or self-care (01) ==
LOC: HO.MAMMO 13:27
DX: Z12.31 Encounter for screening mammogram for malignant neoplasm of breast (principal)
CPT/HCPCS: 77063; 77067

== ENCOUNTER → 2024-11-27 13:45 | Outpatient (BNV) | payer MEDICAID, SELFPAY | PROVIDERS: Visit Provider Internal Medicine | DX: Z12.31 Encounter for screening mammogram for malignant neoplasm of breast (principal) | CPT/HCPCS: 77063; 77067 ==

== ENCOUNTER → 2024-12-11 07:40 | Outpatient (REF) | payer MEDICAID, SELFPAY ==
--- NOTE | ~2024-12-11 | NM_ITS ---
Lexiscan Myocardial perfusion study Indication: Chest pain to evaluate for myocardial ischemia Technique: The patient was brought in for a Lexiscan perfusion study on December 11, 2024 and was injected 0.4 mg of Lexiscan intravenously. Within a minute of this injection 25 mCi of sestamibi was given intravenously. Images were obtained using the SPECT gamma camera interlaced with the gating device. Images were obtained in supine position. Resting perfusion study was performed on December 14, 2024. Patient was administered 25 mCi of sestamibi intravenously at rest. Images were then obtained in supine position. Images obtained without without CT attenuation. Total DLP 61 mGy-cm. Images were processed with the software and compared side to side in short axis, horizontal long axis and vertical long axis views. Findings: The stress perfusion study showed nonattenuated images show some thinning of the basal anterolateral wall of the LV myocardium otherwise normal perfusion. Attenuated corrected images show normal uptake of radiotracer in all segments of the LV myocardium. The gated study shows normal LV systolic function with calculated LVEF of 60%. LV cavity is normal in size. The gated study shows normal systolic wall thickening and contraction of segments. Resting study shows no change in perfusion pattern compared to stress perfusion study. Gating at rest reveals normal systolic wall motion with ejection fraction at 63%. The findings are consistent with normal myocardial perfusion. NM/NM cardiolite stress test Impression: 1. Myocardial perfusion imaging study shows normal myocardial perfusion 2. Gated LVEF is 60% 3. Transient ischemic dilatation not present Nondiagnostic changes on EKG. Electronically signed by: Steven Pak MD 12/14/2024 04:22 PM EDT
--- NOTE | 2024-12-11 07:43 | CA_ITS ---
Acquisition Time: 2024-12-11 08:11:43 Total Exercise Time: 00:02:00 Test Indications: CP Medications: SEE H&P Protocol: LEXISCAN Max HR: 109 BPM 70% of Pred: 154 BPM Max BP: 138/80 mmHG Max Work Load: 1.0 METS Pharmacological stress test with Lexiscan while pt swings her leg in chair, with reports of 10/10 baseline left sided chest tightness that gets worse with palpation, with SOB, without any arrythmias, with normotensive response to injection. Nondiagnostic EKG for ischemia. In recovery, pt treated with IVP Aminophylline 75mg to reverse Lexiscan after which pt started feeling back to baseline. Chest tightness resolved. Nuclear images pending. Test reviewed with Dr. Stone. Referred By: Mejia Perkins Electronically Signed By: Galen Rm
== END ==
LOC: HO.CARD 07:40
DX: R07.9 Chest pain, unspecified (principal)
CPT/HCPCS: 78452; 93017; A9500; J0280; J2785

== ENCOUNTER → 2024-12-11 07:43 | Outpatient (BNV) | payer MEDICAID, SELFPAY | DX: R07.9 Chest pain, unspecified (principal) | CPT/HCPCS: 78452; 93016; 93018 ==

== ENCOUNTER 2025-01-08 08:18 | Outpatient (AMB) | payer MEDICAID, SELFPAY ==
--- NOTE | 2025-01-08 08:21 | MHC.OFFVIS ---
Vital Signs 01/08/25 08:30 Height 4 ft 10 in Weight 105 lb BMI 21.9 BP 118/72 Blood Pressure Location Lt brachial Position Sitting Pulse 76 Pulse Source Pulse Oximeter Pulse Oximetry (%) 98 Oxygen Delivery Method Room Air Intake Visit Reasons: 30 m. Abd pain, LFTs, constipation. Intake Note: Est pt for mgmt of [facility] w/ abd pain. Labs done. CC; C.O. RUQ and R Flank pain persistence. Pt states that the pt is less severe than it was at her last visit, however, it is not resolved. Cold Reduction Roller Required: Yes Cold Reduction Roller Services: Cold Reduction Roller Offered & Declined Information Interpreted: clinical only Accompanied by: Family/Other Allergies No Known Allergies Allergy (Verified 01/08/25 08:21) HPI HPI 30 m. Abd pain, LFTs, constipation.: Details: LAST VISIT: Postprandial abdominal bloating Postprandial epigastric pain Constipation RUQ abdominal pain Plan Patient will start taking senna 1-2 tablets daily or every other day if no bowel movements in 1-2 days. Increase fluid intake and activity to promote better bowel motility. Patient does not have a PCP. Patient will try to call to make an appointment. Will check lipase and liver panel due to her right upper quadrant pain. Negative Martin sign unlikely cholelithiasis, cholecystitis. Possible gas trapping pain due to incomplete emptying or costochondritis of lower rib area. Patient does not remember injury, however seen in the urgent care twice in the past for neck and shoulder pain and treated with muscle relaxant and NSAIDs. Patient will return in 3 months to discuss going for colonoscopy. Both patient and her son-in-law are agreeable to plan of care and verbalizes understanding of instructions. They were given the opportunity to ask questions and all questions answered. ? Thank you for allowing me to participate in her care Orders Lipase Today R10.9 Liver Panel Today R74.01 NM hepatobiliary w pharm Today R10.11 New sennosides (Natural Senna Laxative) 17.2 mg (2 x 8.6 mg) PO BEDTIME 60 tabs 3RF constipation K59.00 TODAY'S VISIT Patient is here today for follow-up and to discuss lab and HIDA scan results. Mild transaminitis. It is significantly elevated triglycerides. Patient continues to have right upper quadrant pain, however she reports that the pain is only occasional and is not as strong as before. Normal HIDA scan. She is taking Senokot and she is moving her bowels better. Patient denies nausea or vomiting. Never had colonoscopy in the past. No family history of CRC. No history of sleep apnea. Not on any anticoagulation medication. Cardiac workup negative. Patient denies any shortness of breath or chest pain. [facility] Medical History (Updated 01/08/25 @ 08:47 [address] Odalys Martel [facility]) RUQ abdominal pain HTN (hypertension) Surgical History History of facial surgery (~05/2024) No pertinent past surgical history Family History Father No problems noted. Social History Household Members Other:: Son-In-Law and Daughter Housing: [facility] Are you a primary urgent care technician to a significant other at home: No Do you presently have visiting nurse or other home services: No Alcohol intake: never Patient Tobacco Use Status: Never used Tobacco e-Cigarette/Vaping Use: Never Used service: No Current occupational status: unemployed Cognitive needs: No Hearing needs: No Vision needs: Yes (Glasses) Review of Systems Const Denies weight gain and Denies weight loss ENT Reports no additional complaints, Denies dysphagia and Denies odynophagia Card Reports no additional complaints Resp Reports no additional complaints GI Reports abdominal pain (RUQ), Denies belching, Denies melena, Denies bloating, Denies change in bowel habits, Denies dysphagia, Denies excessive flatus, Denies dyspepsia, Denies heartburn, Denies diarrhea, Denies loose stools, Denies nausea, Denies odynophagia and Denies vomiting Reports no additional complaints Musc Reports no additional complaints Neuro Reports no additional complaints Psych Reports no additional complaints Endo Reports no additional complaints Physical Exam Const General: healthy appearing, no acute distress and well developed Nutritional Appearance: well nourished Orientation/consciousness: patient oriented x3 Resp Effort & Inspection: normal respiratory effort, able to speak in complete sentences, no tracheal deviation and symmetric chest movement Auscultation: clear to auscultation bilaterally Cardio Rate: regular rate GI Inspection: Yes normal to inspection and No distended Palpation (GI): Soft to palpation, not firm, nontender and No hepatosplenomegaly present Auscultation: normal bowel sounds General: Yes no CVA tenderness Back/Spine/Pelvis Back: no CVA tenderness Skin General skin exam: elasticity normal, turgor normal and dry skin Neuro General: patient oriented x3 Psych Appearance: grossly normal Mental Status: mental status grossly normal Results Reviewed Results Reviewed: HIDA SCAN FINDINGS: There is normal uptake and excretion of the radiopharmaceutical by the liver. Common bile duct activity is noted at 12 minutes. Small bowel activity is seen at 16 minutes. Gallbladder activity is noted at 32 minutes. After the administration of intravenous CCK, the estimated gallbladder ejection fraction is 73%, which is within normal limits. NM/NM hepatobiliary w pharm IMPRESSION: Normal hepatobiliary scan with normal gallbladder ejection fraction. Laboratory Tests 08/28/24 09/18/24 11:14 08:34 Total Bilirubin 0.3 Direct Bilirubin 0.1 AST 34 H ALT 46 H Alkaline Phosphatase 82 Triglycerides 782 H Cholesterol 263 H HDL Cholesterol 38 L Lipase 27 25-OH Vitamin D Total 18.1 L Assessment & Plan Assessment & Plan (1) Elevated liver enzymes: Code(s): R74.8 - Abnormal levels of other serum enzymes Category: Medical (2) RUQ abdominal pain: Code(s): R10.11 - Right upper quadrant pain Category: Medical (3) Constipation: Code(s): K59.00 - Constipation, unspecified (4) Postprandial abdominal bloating: Code(s): R14.0 - Abdominal distension (gaseous) (5) Screen for colon cancer: Code(s): Z12.11 - Encounter for screening for malignant neoplasm of colon Plan Patient will continue with bowel regimen. Will send patient for colonoscopy. What to expect before during and after procedure discussed with patient. Stressed importance of good bowel prep and clear liquid diet day before procedure. Continue avoiding dietary triggers and late night snacking. Staying upright for minimum 3 hours after meals discussed with patient. Patient will follow-up with us after the procedure. She is agreeable to current plan of care and verbalizes understanding of instructions. She was given the opportunity to ask questions and all questions answered. Thank you for allowing me to participate in her care Medications: New polyethylene glycol 3350 (Miralax) As directed by gastroenterology department at [facility] 238 grams PO ONCE 238 grams 0RF Z12.11 - Encounter for screening for malignant neoplasm of colon bisacodyl (Dulcolax (bisacodyl)) take 4 tabs at noon the day before your colonoscopy 20 mg (4 x 5 mg) PO ONCE 4 tabs 0RF constipation 1 day Z12.11 - Encounter for screening for malignant neoplasm of colon Coding Level of Care Code Est Pt Level 3 (34056) Diagnoses Elevated liver enzymes R74.8 RUQ abdominal pain R10.11 Constipation K59.00 Postprandial abdominal bloating R14.0 Screen for colon cancer Z12.11 Time Spent (min) 30 Comment 20 minutes and patient and additional 10 minutes spent reviewing her records
--- OUTSIDE RECORDS SUMMARY | 2025-01-08 08:28 | XMS_ITS | Clinical Summary ---
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
[2025-01-08 08:30] VITALS: BP 118/72; PULSE 76; O2SAT 98; BMI 21.9
== END 2025-01-08 09:06 | disposition home or self-care (01) ==
LOC: HO.HGI 08:19
PROVIDERS: Visit Provider Nurse Practitioner Family
DX: R74.8 Abnormal levels of other serum enzymes (principal); R10.11 Right upper quadrant pain; K59.00 Constipation, unspecified; R14.0 Abdominal distension (gaseous)
CPT/HCPCS: 99213

== ENCOUNTER → 2025-01-08 08:18 | Outpatient (BNVA) | payer MEDICAID, SELFPAY | PROVIDERS: Visit Provider Nurse Practitioner Family | DX: Z12.11 Encounter for screening for malignant neoplasm of colon (principal); K59.00 Constipation, unspecified; R74.8 Abnormal levels of other serum enzymes; R10.11 Right upper quadrant pain; R14.0 Abdominal distension (gaseous) | CPT/HCPCS: 99212 ==

== ENCOUNTER 2025-01-29 15:45 | Outpatient (AMB) | payer MEDICAID, SELFPAY ==
--- NOTE | 2025-01-29 15:48 | A.OFFPC_ITS ---
Vital Signs 3 01/29/25 15:49 Height 4 ft 10 in Weight 106 lb 2 oz BMI 22.2 BP 118/60 Blood Pressure Location Lt brachial Position Sitting Respiration 18 Pulse 84 Pulse Source Pulse Oximeter Temp 97.3 F Temp Source Temporal Artery Scan Pulse Oximetry (%) 98 Oxygen Delivery Method Room Air Intake Visit Reasons: elevated triglycerides/vit D/htn Emergency Management Program Specialist Required: No Accompanied by: son in law Allergies No Known Allergies Allergy (Verified 01/29/25 16:03) Medication List - Last Reconciled 01/29/25 by JESICA Brown amlodipine 5 mg PO DAILY bisacodyl (Dulcolax (bisacodyl)) 20 mg (4 x 5 mg) PO ONCE 1 day cholecalciferol (vitamin D3) 25 mcg PO DAILY 30 days gabapentin 100 mg PO BID polyethylene glycol 3350 (Miralax) 238 grams PO ONCE sennosides (senna) 17.2 mg (2 x 8.6 mg) PO BEDTIME Tobacco use date assessed: 01/29/25 Fall risk assessment: No Falls in past year Last assessed Fall Risk: 01/29/25 Dental Screening Dental Screen Date: 01/29/25 Did you have a dental visit in the last 12 months?: No Did you have a dental problem in the last 6 months where you did not have access to dental care?: No Was dental information given to patient?: No HPI elevated triglycerides/vit D/htn 2 HPI0 Details The patient is a 65-year-old [place] female presenting for follow up appointment of chronic conditions. She is accompanied by son-in-law who interprets for the patient. The patient son-in-law reports that there forgot that she needed to complete labs prior to this appointment. Reports that he has been bringing her to all her appointments but he has health appointment as well and it is hard to keep on track. He will try to bring her to get this done as soon as possible. She is presenting with concerns of asthma, insomnia, constipation, gastroesophageal reflux disease, and headache. Asthma management has been challenging due to the need for a prescription inhaler, which she previously obtained from [facility]. She has been using an inhaler provided by a friend, but requires a prescription for continued use. The patient reports insomnia, with difficulty sleeping at night, and has been prescribed medication to aid sleep, taken at bedtime. Constipation is managed with medication taken at bedtime to ensure regular bowel movements and prevent stomach pain. Gastroesophageal reflux disease symptoms worsen at bedtime, and the patient uses [id number] medications like Pepcid, which have been effective. Shooting pain on the side of left face causing headaches is managed with gabapentin, which she continues to use effectively. [facility] Medical History RUQ abdominal pain HTN (hypertension) Surgical History History of facial surgery (~05/2024) No pertinent past surgical history Family History Father No problems noted. Social History Household Members Other:: Son-In-Law and Daughter [facility] Are you a primary coronary care unit nurse to a significant other at home: No Do you presently have visiting nurse or other home services: No Alcohol intake: never Patient Tobacco Use Status: Never used Tobacco e-Cigarette/Vaping Use: Never Used service: No Current occupational status: unemployed Cognitive needs: No Hearing needs: No Vision needs: Yes (Glasses) Questionnaire PHQ-9 Over the last 2 weeks, how often have you been bothered by any of the following problems? 1. Little interest or pleasure in doing things: not at all 2. Feeling down, depressed, or hopeless: not at all 3. Trouble falling or staying asleep, or sleeping too much: not at all 4. Feeling tired or having little energy: several days 5. Poor appetite or overeating: several days 6. Feeling bad about yourself - or that you are a failure or have let yourself or your family down: not at all 7. Trouble concentrating on things, such as reading the newspaper or watching television: not at all 8. Moving or speaking so slowly that other people could have noticed. Or the opposite - being so fidgety or restless that you have been moving around a lot more than usual: not at all 9. Thoughts that you would be better off or of hurting yourself in some way: not at all Total score: 2 Depression Screening Interpretation: Negative Depression Screening Done: Yes Source: Developed by Drs. Cesar Savage, Juan R Montgomery and colleagues, with an educational aysha from [email or web address]. Thrive Questionnaire Date Thrive assessed: 01/29/25 I am a: Patient What is your living situation today?: I have a steady place to live Within the past 12 months, did the food you bought not last and you didn't have the money to get more?: I choose not to answer this question Within the past 12 months, did you worry whether your food would run out before you got money to buy more?: I choose not to answer this question Do you have trouble paying for medicines?: No Do you have trouble getting transportation to medical appointments?: No Do you have trouble paying your heating and electricity bill?: No Do you have trouble taking care of your child, family member or friend?: No Do you have trouble with day-to-day activities such as bathing, preparing meals, shopping, managing finances, etc.?: No Are you currently unemployed and looking for a job?: No Are you interested in more education?: No Please select the resources that you would like help with: None Currently or been in a relationship where the following occur: I choose not to answer THRIVE Score: 0 AUDIT C Alcohol Use Questionnaire (AUDIT-C) 1. How often do you have a drink containing alcohol?: Never 3. How often do you have six or more drinks on one occasion?: Never Total Score: 0 Score Reviewed/Action Taken: No RAND-7 AMB Questionnaire RAND-7 Date RAND - 7 assessed: 01/29/25 Feeling nervous, anxious, or on edge: 0 = Not at all Not being able to stop or control worryin = Not at all Worrying too much about different things: 0 = Not at all Trouble relaxin = Not at all Being so restless that it is hard to sit still: 1 = Several days Becoming easily annoyed or irritable: 0 = Not at all Feeling afraid as if something awful might happen: 0 = Not at all Total RAND-7 score (0-4 normal; 5-9 mild; 10-14 moderate; 15-21 severe): 1 Source: Developed by Yudy Montgomery Sarkis, Juan R Saravia and colleagues, with an educational aysha from [email or web address]. Review of Systems Const Reports difficulty sleeping and Reports headache(s) Eyes Reports no additional complaints ENT Denies dysphagia, Reports headache(s) and Denies odynophagia Card Reports chest pain (right sided chest pain resolved), Denies syncope, Denies edema, Denies irregular heart rhythm, Denies lightheadedness and Reports dyspnea (Occasional) Resp Denies cough and Reports dyspnea (Occasional) GI Reports abdominal pain (right side of abdomen -appears to be muscular, it is more lateral), Reports constipation, Denies dysphagia, Denies diarrhea, Denies nausea, Denies odynophagia and Denies vomiting Reports no additional complaints Musc Reports no additional complaints, Denies abnormal gait and Reports arthralgias Skin/Breast Reports system reviewed and no additional complaints, except as documented Neuro Denies abnormal gait, Reports burning sensations (Left side of face old scarred area-shooting pain causing headaches), Denies syncope and Reports headache(s) Psych Reports no additional complaints Physical exam (Primary Care) Vital Signs: Last Vital Signs Temp 97.3 F 01/29/25 15:49 Pulse 84 01/29/25 15:49 Resp 18 01/29/25 15:49 BP 118/60 01/29/25 15:49 Pulse Ox 98 01/29/25 15:49 Oxygen Delivery Method Room Air 01/29/25 15:49 BMI result Body Mass Index 22.2 Tobacco/Smoking Status: Tobacco use Status Tobacco use date assessed 01/29/25 01/29/25 15:59 Patient Tobacco Use Status Never used Tobacco 01/29/25 15:59 e-Cigarette/Vaping Use Never Used 01/29/25 15:59 PHQ-9: PHQ-9 Score PHQ-9: Total score 2 01/30/25 20:20 Depression Screening Interpretation: Negative Thrive Assessment: Date of Thrive Assessment Date Thrive assessed 01/29/25 01/29/25 15:59 Currently or been in a relationship where the following occur: I choose not to answer Const General: cooperative, healthy appearing, comfortable and no acute distress Orientation/consciousness: patient oriented x3 HENMT Head: Yes normocephalic Ears: hearing grossly normal bilaterally General nose exam: Normal external nose present Face images: 2 1. Status post removal last skin lesion. Scarred area causing shooting pain Eyes General: appearance normal, both eyes and all related structures Conjunctivae: conjunctivae normal Neck Neck: Yes full ROM and Yes no lymphadenopathy Resp Effort & Inspection: normal respiratory effort Auscultation: clear to auscultation bilaterally, no crackles, no rales, no rhonchi and no wheezes Cardio Rate: regular rate Rhythm: regular rhythm GI Palpation (GI): Soft to palpation, nontender and Other GI palpation findings present (Right-sided pain more towards the rib area) General: Yes no CVA tenderness Back/Spine/Pelvis Back: no CVA tenderness Skin General skin exam: no rashes or lesions noted Neuro General: patient oriented x3 Gait exam (Neuro): Normal gait present Extrem General: Yes normal to inspection, Yes full ROM and No edema Psych Affect: normal affect Attitude: cooperative Insight: Good insight present (Psych) Judgement: Good judgement present (Psych) Coding Level of Care Code Est Pt Level 4 (55715) Diagnoses Asthma, unspecified asthma severity, unspecified whether complicated, unspecified whether persistent J45.909 Asthma complication type: unspecified Asthma persistence: unspecified Asthma severity: unspecified severity Hypertension, unspecified type I10 Hypertension type: unspecified Elevated triglycerides with high cholesterol E78.2 Vitamin D deficiency E55.9 Elevated liver enzymes R74.8 Insomnia, unspecified type G47.00 Insomnia type: unspecified Gastroesophageal reflux disease, unspecified whether esophagitis present K21.9 Esophagitis presence: esophagitis presence not specified Left-sided face pain R51.9 Nonintractable headache, unspecified chronicity pattern, unspecified headache type R51.9 Headache type: unspecified Headache chronicity pattern: unspecified pattern Intractability: not intractable Time Spent (min) 39 Assessment & Plan Assessment & Plan (1) Asthma: Code(s): J45.909 - Unspecified asthma, uncomplicated Category: Medical Qualifiers: Asthma complication type: unspecified Asthma persistence: unspecified Asthma severity: unspecified severity Qualified Code(s): J45.909 - Unspecified asthma, uncomplicated Plan: Reports occasional shortness of breath. Per son-in-law the patient has a history of asthma and used to take an inhaler in [facility]. Reports that the patient forgot to mention this on her previous visits. Albuterol sulfate rescue inhaler ordered (2) HTN (hypertension): Code(s): I10 - Essential (primary) hypertension Category: Medical Qualifiers: Hypertension type: unspecified Qualified Code(s): I10 - Essential (primary) hypertension Plan: Blood pressure 118/60 within goal Reinforced low-salt diet Continue amlodipine 5 mg daily (3) Elevated triglycerides with high cholesterol: Code(s): E78.2 - Mixed hyperlipidemia Category: Medical Plan: Triglycerides 782, total cholesterol 263, HDL 38 on 09/18/24 The patient was started on gemfibrozil 600 mg b.i.d. apparently the patient has stopped taking the medication for unclear reason Discussed dietary modification and to complete blood work as soon as possible to re-evaluate (4) Vitamin D deficiency: Code(s): E55.9 - Vitamin D deficiency, unspecified Category: Medical Plan: Continue cholecalciferol 25 mcg daily (5) Elevated liver enzymes: Code(s): R74.8 - Abnormal levels of other serum enzymes Category: Medical Plan: AST 34, ALT 37 on 09/18/24 Patient was seen by GI peer there is plans for a HIDA scan Reinforced avoiding alcohol medication containing Tylenol (6) Insomnia: Code(s): G47.00 - Insomnia, unspecified Category: Medical Qualifiers: Insomnia type: unspecified Qualified Code(s): G47.00 - Insomnia, unspecified Plan: Reinforced sleep hygiene Start trazodone 50 mg p.r.n. at bedtime (7) GERD (gastroesophageal reflux disease): Code(s): K21.9 - Gastro-esophageal reflux disease without esophagitis Category: Medical Qualifiers: Esophagitis presence: esophagitis presence not specified Qualified Code(s): K21.9 - Gastro-esophageal reflux disease without esophagitis Plan: Reports heartburn primarily at nighttime Reinforced dietary restrictions Started famotidine 40 mg at bedtime (8) Left-sided face pain: Code(s): R51.9 - Headache, unspecified Category: Medical Plan: See below (9) Headache: Code(s): R51.9 - Headache, unspecified Category: Medical Qualifiers: Headache type: unspecified Headache chronicity pattern: unspecified pattern Intractability: not intractable Qualified Code(s): R51.9 - Headache, unspecified Plan: See below Plan The patient will continue using her prescribed inhaler for asthma management, with a new prescription provided to ensure availability. For insomnia, the patient is advised to improve sleep hygiene and start trazodone 50 mg p.r.n. to improve sleep quality. Constipation management includes the continued use of prescribed medication at bedtime to ensure regular bowel movements and prevent associated stomach pain. For gastroesophageal reflux disease, the patient is advised to continue using bkfc-vtm-earkczc medications like Pepcid, which have been effective in managing symptoms. Headaches/ shooting pain on the left side of face will continue to be managed with gabapentin, which the patient reports as effective. A colonoscopy is planned to further evaluate gastrointestinal symptoms, with instructions provided for preparation and scheduling. Patient was informed and verbally consented to the use of an ambient scribe for clinic note documentation during this visit. Medications: New 2 albuterol sulfate 90 mcg/actuation (Ventolin HFA) 2 puffs inhalation Q4-6H PRN 8.5 grams 3RF shortness of breath or wheezing J45.909 - Unspecified asthma, uncomplicated famotidine 40 mg PO BEDTIME 90 tabs 2RF lidocaine 5% leave on most painful area for up to 12 hrs 1 patch topical DAILY 30 ea 3RF trazodone 50 mg PO BEDTIME PRN 90 tabs 3RF sleep
[2025-01-29 15:49] VITALS: BP 118/60; PULSE 84; RESP 18; TEMP 36.3; O2SAT 98; BMI 22.2
== END 2025-01-29 16:31 | disposition home or self-care (01) ==
LOC: HO.HMCH 15:46
DX: J45.909 Unspecified asthma, uncomplicated (principal); I10 Essential (primary) hypertension; E78.2 Mixed hyperlipidemia; E55.9 Vitamin D deficiency, unspecified; R74.8 Abnormal levels of other serum enzymes; G47.00 Insomnia, unspecified; K21.9 Gastro-esophageal reflux disease without esophagitis; R51.9 Headache, unspecified

== ENCOUNTER → 2025-01-29 15:45 | Outpatient (BNVA) | payer MEDICAID, SELFPAY | DX: K21.9 Gastro-esophageal reflux disease without esophagitis (principal); J45.909 Unspecified asthma, uncomplicated; G47.00 Insomnia, unspecified; K59.00 Constipation, unspecified; R51.9 Headache, unspecified; I10 Essential (primary) hypertension; E78.2 Mixed hyperlipidemia; E55.9 Vitamin D deficiency, unspecified; R74.8 Abnormal levels of other serum enzymes | CPT/HCPCS: 99212 ==

== ENCOUNTER 2025-03-19 09:28 | Outpatient (REF) | payer MEDICAID, SELFPAY ==
--- NOTE | ~2025-03-19 | MM_ITS ---
EXAMINATION: DXA BONE DENSITY AXIAL HISTORY: Z13.820 - Encounter for screening for osteoporosis TECHNIQUE: TrueLens Dual energy absorptiometry (DEXA) of the lumbar spine, total left hip, and femoral neck was performed. COMPARISON: There are no prior studies for comparison. FINDINGS: The bone mineral density of the lumbar spine is 0.888 g/cm2, corresponding to a T-score of -2.5, and a Z-score of -0.3. This is indicative of osteopenia. The bone mineral density of the left total hip is 0.773 g/cm2, corresponding to a T-score of -1.9, and a Z-score of -0.1. This is indicative of osteopenia. The bone mineral density of the left femoral neck is 0.679 g/cm2, corresponding to a T-score of -2.6, and a Z-score of -0.6. This is indicative of osteoporosis. FRACTURE RISK: The FRAX index suggests a risk of major osteoporotic fracture of 7.1%, and of hip fracture 1.8%. MM/XR DEXA axial skeleton IMPRESSION: Based on bone mineral density, and according to World Health Organization (WHO) criteria, the diagnosis is consistent with osteoporosis. Statistically, 68% of repeat scans fall within 1 SD (+/- 0.010 g/cm2 for AP spine L1-L4) and 1 SD (+/- 0.012 g/cm2 for femur total) FRAX is a trademark of the [employer]'s [employer] for Metabolic Bone Disease, a World Health Organization (WHO) Collaborating Center. Electronically signed by: Cesar Viveros MD 03/19/2025 10:16 AM EDT
--- OUTSIDE RECORDS SUMMARY | 2025-03-19 10:10 | XMS_ITS | Clinical Summary ---
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
== END 2025-03-19 09:29 | disposition home or self-care (01) ==
LOC: HO.MAMMO 09:28
DX: Z13.820 Encounter for screening for osteoporosis (principal); Z78.0 Asymptomatic menopausal state
CPT/HCPCS: 77080

== ENCOUNTER → 2025-03-19 10:00 | Outpatient (BNV) | payer MEDICAID, SELFPAY | PROVIDERS: Visit Provider Radiology Diagnostic Radiology | DX: E28.39 Other primary ovarian failure (principal) | CPT/HCPCS: 77080 ==

== ENCOUNTER 2025-05-01 08:15 | Outpatient (REF) | payer MEDICAID, SELFPAY ==
[2025-05-01 08:26] LABS: MANUAL DIFF FLAG NO
[2025-05-01 09:07] LABS: Hematocrit 38.8 % (37.0-47.0); Hemoglobin 12.1 g/dl (12.0-16.0); Imm Gran Abs Auto 0.01 X10*3/uL (0.00-0.03); Imm Gran Pct Auto 0.3 % (0.0-0.4); Lymphocytes Absolute Auto 1.3 X10*3/uL (1.2-4.9); Mean Corpuscular HGB Conc 31.2 g/dl (31.0-35.0); Mean Corpuscular Hemoglobin 26.9 pg (27.0-33.0); Mean Corpuscular Volume 86.2 fL (80.0-98.0); NRBC Abs Auto 0.000 X10*3/uL (0.0-0.012); NRBC Pct Auto 0.0 /100WBC (0.0-0.2); Platelet Count 281 X10*3/uL (160-400); Red Blood Count 4.50 X10*6/uL (4.20-5.50); White Blood Count 4.0 X10*3/uL (4.8-10.8)
[2025-05-01 09:33] LABS: Appearance Urine Clear; Glucose Urine UA Negative (Negative); PH 6.0 (5.0-9.0); Specific Gravity - Urine 1.025 (1.005-1.025)
[2025-05-01 09:41] LABS: Alanine Aminotransferase 21 U/L (0-31); Albumin Level 4.6 g/dL (3.5-5.0); Alkaline Phosphatase 62 U/L (39-117); Anion Gap 13 (12-20); Aspartate Amino Transferase 25 U/L (5-31); Blood Urea Nitrogen 12 mg/dL (9-16); Calcium 9.8 mg/dL (8.4-10.2); Carbon Dioxide 28 mmol/L (22-29); Chloride 107 mmol/L (96-108); Estimated Glomerular Filt Rate > 60; Potassium 4.1 mmol/L (3.3-5.1); Sodium 144 mmol/L (135-145); Total Protein 7.3 g/dL (6.5-8.0)
== END 2025-05-01 08:16 | disposition home or self-care (01) ==
LOC: HO.LAB 08:15
DX: Z00.00 Encounter for general adult medical examination without abnormal findings (principal); E78.2 Mixed hyperlipidemia; E55.9 Vitamin D deficiency, unspecified; I10 Essential (primary) hypertension; R74.8 Abnormal levels of other serum enzymes
CPT/HCPCS: 36415; 80053; 81003; 82306; 83036; 84443; 85025

== ENCOUNTER 2025-05-07 15:39 | Outpatient (AMB) | payer MEDICAID, SELFPAY ==
--- OUTSIDE RECORDS SUMMARY | 2025-05-07 15:42 | XMS_ITS | Clinical Summary ---
Author Organization [employer] Address [address] [place] [address] [address] [place] [address] Care Team Providers Care Sports Physical Therapist Name Role Phone Unavailable Primary Care Provider [...] Screening 10/31/2024 11/01/2023 COVID-19 Vaccine (1 - 2024-2 6 season) 2025 Influenza Vaccine (#1) 2025 RSV [...] patient's age to complete this topic Insurance [facility] STANDARD
--- NOTE | 2025-05-07 15:52 | A.OFFPC_ITS ---
Vital Signs 05/07/25 15:53 Height 4 ft 10 in Weight 102 lb 6 oz BMI 21.4 BP 130/68 Blood Pressure Location Lt brachial Position Sitting Respiration 18 Pulse 61 Pulse Source Pulse Oximeter Temp Source Temporal Artery Scan Pulse Oximetry (%) 98 Oxygen Delivery Method Room Air Intake Visit Reasons: htn/elevated liver enzymes/asthma Set Decorator Required: No Accompanied by: Self / Same As Patient Allergies No Known Allergies Allergy (Verified 05/07/25 22:55) Medication List - Last Reconciled 05/07/25 by JESICA Brown albuterol sulfate 90 mcg/actuation (Ventolin HFA) 2 puffs inhalation Q4-6H PRN amlodipine 5 mg PO DAILY bisacodyl (Dulcolax (bisacodyl)) 20 mg (4 x 5 mg) PO ONCE 1 day calcium carbonate (Calcium 600) 900 mg (1.5 x 600 mg calcium (1,500 mg)) PO DAILY cholecalciferol (vitamin D3) (Vitamin D3) 25 mcg PO DAILY famotidine 40 mg PO BEDTIME gabapentin 100 mg PO BID gemfibrozil 600 mg PO BID 30 days lidocaine 5% 1 patch topical DAILY polyethylene glycol 3350 (Miralax) 238 grams PO ONCE sennosides (senna) 17.2 mg (2 x 8.6 mg) PO BEDTIME trazodone 50 mg PO BEDTIME PRN Tobacco use date assessed: 05/07/25 Fall risk assessment: No Falls in past year Last assessed Fall Risk: 05/07/25 Dental Screening Dental Screen Date: 05/07/25 Did you have a dental visit in the last 12 months?: Yes Did you have a dental problem in the last 6 months where you did not have access to dental care?: No Was dental information given to patient?: Patient has dentist HPI htn/elevated liver enzymes/asthma HPI Details The patient is a 65 year old individual presenting for management of chronic conditions. The patient has osteoporosis, which was diagnosed via a bone density test. The patient is at an increased risk for fractures and has been advised to be careful to avoid falls. The patient is currently taking vitamin D. The patient has a history of high triglycerides and was previously prescribed gemfibrozil, but stopped taking it after a visit with a epic anesthesia analyst. There was confusion that the medication was stopped by the GI [facility] staff, but it was noted that the patient reports that she is not taking the medication anymore. The patient has chronic shoulder pain, which is described as a chronic wear and tear condition that will not completely resolve . Management has been conservative, offered PT, but the patient/family wants hold off for now. [id number] of -2.6, indicating osteoporosis, with the patient is already taking vitamin-D supplement, calcium carbonate was added. We will refer the patient to endocrine to see if she is a candidate for anabolic therapy before starting her on any biphosphonate Elevated triglycerides, restarted gemfibrozil 600 mg b.i.d. we will recheck labs in 4 months Constipation, patient denies constipation. Encouraged adequate fluid, continue MiraLax daily, senna tabs at bedtime Left upper chest pain continues-the patient was evaluated in the ED for same chest pain, she was sent for cardio stress and EKG tests without any ishcemia. Denies sob, heart palpitation, or dizziness. Reports ongoing RUQ pain that was worked up by gastro without any acute findings. [facility] Medical History RUQ abdominal pain HTN (hypertension) Surgical History History of facial surgery (~05/2024) No pertinent past surgical history Family History Father No problems noted. Social History Household Members Other:: Son-In-Law and Daughter [facility] Are you a primary rn care transition to a significant other at home: No Do you presently have visiting nurse or other home services: No Alcohol intake: never Patient Tobacco Use Status: Never used Tobacco e-Cigarette/Vaping Use: Never Used service: No Current occupational status: unemployed Cognitive needs: No Hearing needs: No Vision needs: Yes (Glasses) Questionnaire PHQ-9 Over the last 2 weeks, how often have you been bothered by any of the following problems? 1. Little interest or pleasure in doing things: not at all 2. Feeling down, depressed, or hopeless: not at all 3. Trouble falling or staying asleep, or sleeping too much: not at all 4. Feeling tired or having little energy: several days 5. Poor appetite or overeating: several days 6. Feeling bad about yourself - or that you are a failure or have let yourself or your family down: not at all 7. Trouble concentrating on things, such as reading the newspaper or watching television: not at all 8. Moving or speaking so slowly that other people could have noticed. Or the opposite - being so fidgety or restless that you have been moving around a lot more than usual: not at all 9. Thoughts that you would be better off or of hurting yourself in some wa y: not at all Total score: 2 Depression Screening Interpretation: Negative Depression Screening Done: Yes Source: Developed by Drs. Cesar Savage, Yudy Dockery, Juan R Saravia and colleagues, with an educational aysha from [employer]. Thrive Questionnaire Date Thrive assessed: 05/07/25 I am a: Patient What is your living situation today?: I have a steady place to live Within the past 12 months, did the food you bought not last and you didn't have the money to get more?: I choose not to answer this question Within the past 12 months, did you worry whether your food would run out before you got money to buy more?: I choose not to answer this question Do you have trouble paying for medicines?: No Do you have trouble getting transportation to medical appointments?: No Do you have trouble paying your heating and electricity bill?: No Do you have trouble taking care of your child, family member or friend?: No Do you have trouble with day-to-day activities such as bathing, preparing meals, shopping, managing finances, etc.?: No Are you currently unemployed and looking for a job?: No Are you interested in more education?: No Please select the resources that you would like help with: None Currently or been in a relationship where the following occur: I choose not to answer THRIVE Score: 0 AUDIT C Alcohol Use Questionnaire (AUDIT-C) 1. How often do you have a drink containing alcohol?: Never 3. How often do you have six or more drinks on one occasion?: Never Total Score: 0 Score Reviewed/Action Taken: No RAND-7 AMB Questionnaire RAND-7 Date RAND - 7 assessed: 01/29/25 Feeling nervous, anxious, or on edge: 0 = Not at all Worrying too much about different things: 0 = Not at all Trouble relaxin = Not at all Being so restless that it is hard to sit still: 1 = Several days Becoming easily annoyed or irritable: 0 = Not at all Feeling afraid as if something awful might happen: 0 = Not at all Source: Developed by Drs. Cesar Savage, Yudy Dockery, Juna R Saravia and colleagues, with an educational aysha from [employer]. Review of Systems Const Reports difficulty sleeping and Reports headache(s) Eyes Reports no additional complaints ENT Denies dysphagia, Reports headache(s) and Denies odynophagia Card Reports chest pain (right sided chest pain resolved), Denies syncope, Denies edema, Denies irregular heart rhythm, Denies lightheadedness and Reports dyspnea (Occasional) Resp Denies cough and Reports dyspnea (Occasional) GI Reports abdominal pain (right side of abdomen -appears to be muscular, it is more lateral), Reports constipation, Denies dysphagia, Denies diarrhea, Denies nausea, Denies odynophagia and Denies vomiting Reports no additional complaints Musc Reports no additional complaints, Denies abnormal gait and Reports arthralgias Skin/Breast Reports system reviewed and no additional complaints, except as documented Neuro Denies abnormal gait, Reports burning sensations (Left side of face old scarred area-shooting pain causing headaches), Denies syncope and Reports headache(s) Psych Reports no additional complaints Physical exam (Primary Care) Vital Signs: Last Vital Signs Pulse 61 05/07/25 15:53 Resp 18 05/07/25 15:53 BP 130/68 05/07/25 15:53 Pulse Ox 98 05/07/25 15:53 Oxygen Delivery Method Room Air 05/07/25 15:53 BMI result Body Mass Index 21.4 Tobacco/Smoking Status: Tobacco use Status Tobacco use date assessed 05/07/25 05/07/25 16:02 Patient Tobacco Use Status Never used Tobacco 05/07/25 16:02 e-Cigarette/Vaping Use Never Used 05/07/25 16:02 PHQ-9: PHQ-9 Score PHQ-9: Total score 2 05/07/25 16:37 Depression Screening Interpretation: Negative Thrive Assessment: Date of Thrive Assessment Date Thrive assessed 05/07/25 05/07/25 16:02 Currently or been in a relationship where the following occur: I choose not to answer Const General: cooperative, healthy appearing, comfortable and no acute distress Orientation/consciousness: patient oriented x3 HENMT Head: Yes normocephalic Ears: hearing grossly normal bilaterally General nose exam: Normal external nose present Eyes General: appearance normal, both eyes and all related structures Conjunctivae: conjunctivae normal Neck Neck: Yes full ROM and Yes no lymphadenopathy Resp Effort & Inspection: normal respiratory effort Auscultation: clear to auscultation bilaterally, no crackles, no rales, no rhonchi and no wheezes Cardio Rate: regular rate Rhythm: regular rhythm GI Palpation (GI): Soft to palpation, nontender and Other GI palpation findings present (Right-sided pain more towards the rib area) General: Yes no CVA tenderness Back/Spine/Pelvis Back: no CVA tenderness Skin General skin exam: no rashes or lesions noted Neuro General: patient oriented x3 Gait exam (Neuro): Normal gait present Extrem General: Yes normal to inspection, Yes full ROM and No edema Psych Affect: normal affect Attitude: cooperative Insight: Good insight present (Psych) Judgement: Good judgement present (Psych) Results Reviewed Results Reviewed: Laboratory Tests 05/01/25 05/01/25 08:18 08:25 WBC 4.0 L RBC 4.50 Hgb 12.1 Hct 38.8 MCV 86.2 MCH 26.9 L MCHC 31.2 RDW 12.9 Plt Count 281 Sodium 144 Potassium 4.1 Chloride 107 Carbon Dioxide 28 Anion Gap 13 BUN 12 Creatinine 0.89 Estimated GFR > 60 Fasting Glucose 101 H Estimat Average Glucose 120 Hemoglobin A1c % 5.8 Calcium 9.8 Total Bilirubin 0.4 AST 25 ALT 21 Alkaline Phosphatase 62 Total Protein 7.3 Albumin 4.6 25-OH Vitamin D Total 60.4 TSH 0.73 Urine Color Yellow Urine Appearance Clear Urine pH 6.0 Ur Specific Powell 1.025 Urine Protein Trace Urine Glucose (UA) Negative Urine Ketones Trace Urine Blood Negative Urine Nitrite Negative Ur Leukocyte Esterase Negative Coding Level of Care Code Est Pt Level 4 (11344) Diagnoses Asthma, unspecified asthma severity, unspecified whether complicated, unspecified whether persistent J45.909 Asthma complication type: unspecified Asthma persistence: unspecified Asthma severity: unspecified severity Hypertension, unspecified type I10 Hypertension type: unspecified Elevated triglycerides with high cholesterol E78.2 Vitamin D deficiency E55.9 Elevated liver enzymes R74.8 Insomnia, unspecified type G47.00 Insomnia type: unspecified Gastroesophageal reflux disease, unspecified whether esophagitis present K21.9 Esophagitis presence: esophagitis presence not specified Left-sided face pain R51.9 Prediabetes R73.03 Age-related osteoporosis without current pathological fracture M81.0 Osteoporosis type: age-related Presence of current pathological fracture: without current pathological fracture Time Spent (min) 36 Assessment & Plan Assessment & Plan (1) Asthma: Code(s): J45.909 - Unspecified asthma, uncomplicated Category: Medical Qualifiers: Asthma complication type: unspecified Asthma persistence: unspecified Asthma severity: unspecified severity Qualified Code(s): J45.909 - Unspecified asthma, uncomplicated Plan: Reports occasional shortness of breath. Per son-in-law the patient has a his tory of asthma and used to take an inhaler in [facility]. Reports that the patient forgot to mention this on her previous visits. Albuterol sulfate rescue inhaler was ordered (2) HTN (hypertension): Code(s): I10 - Essential (primary) hypertension Category: Medical Qualifiers: Hypertension type: unspecified Qualified Code(s): I10 - Essential (primary) hypertension Plan: Blood pressure 130/68 within goal Reinforced low-salt diet Continue amlodipine 5 mg daily (3) Elevated triglycerides with high cholesterol: Code(s): E78.2 - Mixed hyperlipidemia Category: Medical Plan: Triglycerides 782, total cholesterol 263, HDL 38 on 09/18/24 The patient was started on gemfibrozil 600 mg b.i.d. apparently the patient has stopped taking the medication for unclear reason. Encouraged the patient to restart the medication. Discussed dietary modification and to complete blood work as soon as possible to re-evaluate (4) Vitamin D deficiency: Code(s): E55.9 - Vitamin D deficiency, unspecified Category: Medical Plan: Continue cholecalciferol 25 mcg daily (5) Elevated liver enzymes: Code(s): R74.8 - Abnormal levels of other serum enzymes Category: Medical Plan: Normalized on recent labs-prior the patient had a ultrasound that shows gallbladder distended without evidence of stones, sludge, polyps, wall thickening or pericholecystic fluid. She was evaluated by GI AND had a normal HIDA scan. The patient continue to have RUQ pain, suspected to be muscular or gas entrapment. Reinforced avoiding alcohol medication containing Tylenol (6) Insomnia: Code(s): G47.00 - Insomnia, unspecified Category: Medical Qualifiers: Insomnia type: unspecified Qualified Code(s): G47.00 - Insomnia, unspecified Plan: Reinforced sleep hygiene Continue trazodone 50 mg p.r.n. at bedtime (7) GERD (gastroesophageal reflux disease): Code(s): K21.9 - Gastro-esophageal reflux disease without esophagitis Category: Medical Qualifiers: Esophagitis presence: esophagitis presence not specified Qualified Code(s): K21.9 - Gastro-esophageal reflux disease without esophagitis Plan: Reports heartburn primarily at nighttime Reinforced dietary restrictions Continue Famotidine 40 mg at bedtime (8) Left-sided face pain: Code(s): R51.9 - Headache, unspecified Category: Medical Plan: Headaches/ shooting pain on the left side of face will continue to be managed with gabapentin, which the patient reports as effective (9) Prediabetes: Code(s): R73.03 - Prediabetes Category: Medical Plan: fasting glucose 101 and A1C 5.8% reinforced low sugar/carbohydrate diet will continue to monitor fasting glucose and a1c (10) Osteoporosis: Code(s): M81.0 - Age-related osteoporosis without current pathological fracture Category: Medical Qualifiers: Osteoporosis type: age-related Presence of current pathological fracture: without current pathological fracture Qualified Code(s): M81.0 - Age- related osteoporosis without current pathological fracture Plan: DEXA scan done on on 03/19/25 shows lowest of score T-score of -2.6 of the left femoral neck. Subjects a risk of major osteoporotic fracture of 7.1% and of hip fracture 1.8%. Will start the patient on calcium, she is already on vitamin D supplement. Will refer the patient to endocrine to see if she is a candidate for any anabolic therapy before initiating any bisphosphonate. Orders: Orders Complete Blood Count Auto Diff 4 Months E55.9 - Vitamin D deficiency, unspecified, E78.2 - Mixed hyperlipidemia, I10 - Essential (primary) h ypertension, K21.9 - Gastro-esophageal reflux disease without esophagitis, R73.03 - Prediabetes, R74.8 - Abnormal levels of other serum enzymes Comprehensive [place]. Panel Fast 4 Months E55.9 - Vitamin D deficiency, unspecified, E78.2 - Mixed hyperlipidemia, I10 - Essential (primary) hypertension, K21.9 - Gastro-esophageal reflux disease without esophagitis, R73.03 - Prediabetes, R74.8 - Abnormal levels of other serum enzymes Vitamin D 25-OH Total 4 Months E55.9 - Vitamin D deficiency, unspecified, E78.2 - Mixed hyperlipidemia, I10 - Essential (primary) hypertension, K21.9 - Gastro- esophageal reflux disease without esophagitis, R73.03 - Prediabetes, R74.8 - Abnormal levels of other serum enzymes UA CC w/rflx Micro + Cult 4 Months E55.9 - Vitamin D deficiency, unspecified, E78.2 - Mixed hyperlipidemia, I10 - Essential (primary) hypertension, K21.9 - Gastro-esophageal reflux disease without esophagitis, R73.03 - Prediabetes, R74.8 - Abnormal levels of other serum enzymes TSH reflex Free T4 4 Months E55.9 - Vitamin D deficiency, unspecified, E78.2 - Mixed hyperlipidemia, I10 - Essential (primary) hypertension, K21.9 - Gastro- esophageal reflux disease without esophagitis, R73.03 - Prediabetes, R74.8 - Abnormal levels of other serum enzymes Hemoglobin A1c 4 Months E55.9 - Vitamin D deficiency, unspecified, E78.2 - Mixed hyperlipidemia, I10 - Essential (primary) hypertension, K21.9 - Gastro- esophageal reflux disease without esophagitis, R73.03 - Prediabetes, R74.8 - Abnormal levels of other serum enzymes Lipid Panel 4 Months E55.9 - Vitamin D deficiency, unspecified, E78.2 - Mixed hyperlipidemia, I10 - Essential (primary) hypertension, K21.9 - Gastro- esophageal reflux disease without esophagitis, R73.03 - Prediabetes, R74.8 - Abnormal levels of other serum enzymes Referrals Endocrinology Referral M81.0 - Age-related osteoporosis without current pathological fracture Medications: New calcium carbonate (Calcium 600) 900 mg (1.5 x 600 mg calcium (1,500 mg)) PO DAILY 90 tabs 3RF Refilled gemfibrozil 600 mg PO BID 60 tabs 3RF 30 days E78.2 - Mixed hyperlipidemia
[2025-05-07 15:53] VITALS: BP 130/68; PULSE 61; RESP 18; O2SAT 98; BMI 21.4
== END 2025-05-07 16:53 | disposition home or self-care (01) ==
LOC: HO.HMCH 15:39
DX: J45.909 Unspecified asthma, uncomplicated (principal); I10 Essential (primary) hypertension; E78.2 Mixed hyperlipidemia; E55.9 Vitamin D deficiency, unspecified; R74.8 Abnormal levels of other serum enzymes; G47.00 Insomnia, unspecified; K21.9 Gastro-esophageal reflux disease without esophagitis; R51.9 Headache, unspecified; R73.03 Prediabetes; M81.0 Age-related osteoporosis without current pathological fracture

== ENCOUNTER → 2025-05-07 15:39 | Outpatient (BNVA) | payer MEDICAID, SELFPAY | DX: M81.0 Age-related osteoporosis without current pathological fracture (principal); R10.11 Right upper quadrant pain; J45.909 Unspecified asthma, uncomplicated; I10 Essential (primary) hypertension; E78.2 Mixed hyperlipidemia; E55.9 Vitamin D deficiency, unspecified; R74.8 Abnormal levels of other serum enzymes; G47.00 Insomnia, unspecified; K21.9 Gastro-esophageal reflux disease without esophagitis; R51.9 Headache, unspecified; R73.03 Prediabetes | CPT/HCPCS: 99212 ==

== ENCOUNTER 2025-06-11 10:31 | Outpatient (AMB) | payer MEDICAID, SELFPAY ==
--- OUTSIDE RECORDS SUMMARY | 2025-06-11 10:34 | XMS_ITS | Clinical Summary ---
Author Organization [employer] Address [address] [place] [address] [address] [place] [address] Care Team Providers Care Internal Controls Specialist Name Role Phone Unavailable Primary Care [...] patient's age to complete this topic Insurance [facility] STANDARD
--- NOTE | 2025-06-11 10:35 | A.OFFVIS_ITS ---
Vital Signs 06/11/25 10:36 Height 4 ft 10 in Weight 102 lb 6.602 oz BMI 21.4 BP 122/74 Blood Pressure Location Rt brachial Position Sitting Pulse 67 Pulse Source Pulse Oximeter Pulse Oximetry (%) 96 Oxygen Delivery Method Room Air Intake Visit Reasons: Age-related osteoporosis without current pathologi Intake Note: NEW Patient presents today to establish care for Osteoporosis: No acute complaints reported at this time. ? Date of last Bone Density Screenin03/19/2025 Curtain Inspector Required: Yes Curtain Inspector Language: [place] Zealander (Greenlandic) Curtain Inspector Services: Curtain Inspector Offered & Declined Curtain Inspector Name: Son Accompanied by: Self / Same As Patient Allergies No Known Allergies Allergy (Verified 06/11/25 10:36) HPI Comments Details: 65 years old female with past medical history of prediabetes, GERD, asthma, vitamin-D deficiency, mixed hypercholesterolemia, seen in the office for initial evaluation and management of osteoporosis. Patient does not speak Kiswahili, son-in-law acts as a hair rooting machine operator. Osteoporosis was identified through a bone density scan performed by another provider, though the specific indication for the test is unclear. There is no hi story of fractures, but the bones are described as very thin. Current medications include Vitamin D 1000 IU daily and calcium carbonate 900 mg daily, both started in April. She does not take steroids, PPI or HRT. A medication for hypertriglyceridemia (gemfibrozil) is also prescribed but adherence is uncertain. Social history reveals minimal physical activity, consisting of occasional walks in the park, which are limited by cold weather. Diet is low in calcium-rich foods, with infrequent milk consumption (approximately half a cup weekly), no cheese, and no spinach, kale, or broccoli. There is no history of smoking or alcohol use. There are no plans for dental extractions or implants. No known drug allergies. Physical exam: General: Well appearing. NAD. Neck/Thyroid: Thyroid not palpable, no nodules. CV: RRR, no murmur. No edema. Resp:Lungs clear to auscultation bilaterally Abdomen: Soft, nontender. nondistended Extremities/Neuro: No weakness or tremor of outstretched hands Laboratory Tests 09/18/24 05/01/25 08:34 08:25 Creatinine 0.73 0.89 Estimated GFR > 60 > 60 Calcium 9.6 9.8 Total Bilirubin 0.3 0.4 AST 34 H 25 ALT 37 H 21 Alkaline Phosphatase 87 62 Total Protein 7.6 7.3 Albumin 4.4 4.6 Triglycerides 782 H Cholesterol 263 H HDL Cholesterol 38 L 25-OH Vitamin D Total 18.1 L 60.4 TSH 1.54 0.73 DEXA 03/19/2025 COMPARISON: There are no prior studies for comparison. FINDINGS: The bone mineral density of the lumbar spine is 0.888 g/cm2, corresponding to a T-score of -2.5, and a Z-score of -0.3. This is indicative of osteopenia. The bone mineral density of the left total hip is 0.773 g/cm2, corresponding to a T-score of -1.9, and a Z-score of -0.1. This is indicative of osteopenia. The bone mineral density of the left femoral neck is 0.679 g/cm2, corresponding to a T-score of -2.6, and a Z-score of -0.6. This is indicative of osteoporosis. FRACTURE RISK: The FRAX index suggests a risk of major osteoporotic fracture of 7.1%, and of hip fracture 1.8%. IMPRESSION: Based on bone mineral density, and according to World Health Organization (WHO) criteria, the diagnosis is consistent with osteoporosis. [facility] Medical History RUQ abdominal pain HTN (hypertension) Surgical History History of facial surgery (~05/2024) No pertinent past surgical history Family History Father No problems noted. Social History Household Members Other:: Son-In-Law and Daughter Housing: Condominium Are you a primary care program director to a significant other at home: No Do you presently have visiting nurse or other home services: No Alcohol intake: never Patient Tobacco Use Status: Never used Tobacco e-Cigarette/Vaping Use: Never Used service: No Current occupational status: unemployed Cognitive needs: No Hearing needs: No Vision needs: Yes (Glasses) Physical Exam Vital Signs: Last Vital Signs Pulse 67 06/11/25 10:36 BP 122/74 06/11/25 10:36 Pulse Ox 96 06/11/25 10:36 Oxygen Delivery Method Room Air 06/11/25 10:36 BMI result Body Mass Index 21.4 Assessment & Plan Assessment & Plan (1) Osteoporosis: Code(s): M81.0 - Age-related osteoporosis without current pathological fracture Category: Medical Qualifiers: Osteoporosis type: age-related Presence of current pathological fracture: without current pathological fracture Qualified Code(s): M81.0 - Age- related osteoporosis without current pathological fracture Plan: Osteoporosis - Assessment: The diagnosis of osteoporosis is based on a bone density scan. The goal of treatment is to prevent further bone weakening and reduce the risk of fractures. The patient's current calcium intake from diet appears to be low. - Investigations planned: - Comprehensive metabolic panel (CMP) to assess electrolytes, renal function, and calcium levels. - 24-hour urine collection for calcium excretion to evaluate for hypercalciuria. - Medical treatment plan: - Discussed three main treatment options: Fosamax (weekly oral bisphosphonate), Reclast (annual intravenous bisphosphonate), and Prolia (six-monthly subcutaneous injection). - Counseled on potential side effects of these medications, including esophageal irritation with Fosamax (advised to take with plenty of water and remain upright for 1-2 hours post-dose), and the risk of osteonecrosis of the jaw (ONJ) with all three agents. The importance of avoiding dental procedures like extractions or implants while on these medications was emphasized. - A decision on the specific medication will be made after the results of the planned investigations are available. - Lifestyle modifications advised: - Continue current calcium and vitamin D supplementation. - Encouraged to increase dietary calcium intake. - Encouraged regular physical activity to improve bone strength and balance. - Follow-up plan: - Follow-up appointment scheduled in three months to review investigation results and finalize the treatment plan. - The planned investigations (24-hour urine collection and blood work) can be completed upon return from upcoming travel, as there is no urgency. (2) Elevated triglycerides with high cholesterol: Code(s): E78.2 - Mixed hyperlipidemia Category: Medical Plan: 2. Hypertriglyceridemia - Assessment: The patient has a significantly elevated triglyceride level of 782 mg/dL, which places her at an increased risk for pancreatitis. Adherence to the prescribed medication (gemfibrozil) is uncertain. - Medical treatment plan: - Emphasized the importance of taking the prescribed medication for hypertriglyceridemia to reduce the risk of pancreatitis. - The name and dose of the cholesterol medication will be provided in the patient's instructions. Plan 65 minutes spent reviewing previous records, labs, imaging, education and documenting in the chart Orders: Orders Calcium, Ionized Today M81.0 - Age-related osteoporosis without current pathological fracture Phosphorus Today M81.0 - Age-related osteoporosis without current pathological fracture Creatinine, 24 Hr Group Today M81.0 - Age-related osteoporosis without current pathological fracture Vitamin D 25-OH Total Today M81.0 - Age-related osteoporosis without current pathological fracture Comprehensive Met. Panel Today M81.0 - Age-related osteoporosis without current pathological fracture Calcium, 24 Hr Ur Today M81.0 - Age-related osteoporosis without current pathological fracture Parathyroid Hormone Intact Today M81.0 - Age-related osteoporosis without current pathological fracture Patient Instructions: 24-Hour Urine Calcium Collection Instructions Purpose: This test measures the amount of calcium excreted in your urine over a 24-hour period. It helps evaluate calcium metabolism and diagnose certain conditions. Supplies Needed: 24-hour urine collection container (provided by the lab or clinic) Urine hat or collection device (optional, for easier collection) Written instructions (this sheet) Instructions: Start the Collection: Choose a day when you can be at home or have easy access to a bathroom. Upon waking up on the first day, urinate and discard this first morning urine. Do not collect this sample. Note the exact time?this is your start time. Collect All Urine: For the next 24 hours, collect all urine you pass into the provided container. Each time you urinate, collect it in a clean container and transfer it to the 24-hour collection jug. Store the collection container in a cool place, preferably in a refrigerator or on ice, during the collection period. Finish the Collection: Exactly 24 hours after your start time, urinate one last time and add this urine to the container. This completes the collection. After Collection: Ensure the lid is tightly closed. Label the container with your name, date, and start/end times. Return the container to the laboratory or your physician?s office as soon as possible after completion. Important Tips: Do not miss any urine during the 24-hour period. If you do, the test may need to be repeated. Do not allow toilet paper, stool, or other materials to get into the urine sample. Continue your usual diet unless instructed otherwise. Some tests may require you to avoid certain foods or medications?follow any additional instructions provided by your physician. Instructions printed and handed-In [place]ander *Take Gemfibrozil 600mg daily for elevated triglycerides Coding Level of Care Code New Pt Level 5 (21687) Add On Problem Visit Only Diagnoses Age-related osteoporosis without current pathological fracture M81.0 Osteoporosis type: age-related Presence of current pathological fracture: without current pathological fracture Elevated triglycerides with high cholesterol E78.2
[2025-06-11 10:36] VITALS: BP 122/74; PULSE 67; O2SAT 96; BMI 21.4
== END 2025-06-11 11:28 | disposition home or self-care (01) ==
PROVIDERS: Visit Provider Student in an Organized Health Care Education/Training Program
DX: M81.0 Age-related osteoporosis without current pathological fracture (principal); E78.2 Mixed hyperlipidemia
CPT/HCPCS: 99205

== ENCOUNTER → 2025-06-11 10:31 | Outpatient (BNVA) | payer MEDICAID, SELFPAY | PROVIDERS: Visit Provider Student in an Organized Health Care Education/Training Program | DX: M81.0 Age-related osteoporosis without current pathological fracture (principal); E78.2 Mixed hyperlipidemia; Z79.899 Other long term (current) drug therapy | CPT/HCPCS: 99202 ==